=== PATIENT | female | born 1945 | race Caucasian/White ===

== ENCOUNTER 2024-08-19 04:49 | Inpatient (IN) | payer MEDICARE, OTHER, SELFPAY ==
[2024-08-19] VITALS (162 sets, daily range): BP systolic 77–141; BP diastolic 36–84; BMI 24.6; BMI 24.7
[2024-08-19 00:12] LABS: Glucose - Point of Care 45 mg/dl (70-99)
[2024-08-19 00:43] LABS: Glucose - Point of Care 67 mg/dl (70-99)
--- NOTE | 2024-08-19 00:51 | VATNOTE ---
VAT paged to access patient's port. Both medial and lateral accessed, flushed with ease no BR in either lumen. Patient in need of vascular access for hypoglycemia, will address lack of blood return when stable. Patient states her port was just
accessed at [facility] on August 12 and she frequently has issues with blood return. Primary RN aware and at bedside.
[2024-08-19] MEDS: D10W 250 IV (00:52)
[2024-08-19 01:04] LABS: AST (SGOT) 36 U/L (14-36); Albumin 2.1 g/dl (3.5-5.0); Alkaline Phosphatase 276 U/L (38-126); Blood Urea Nitrogen 19 mg/dl (7-17); Calcium 8.2 mg/dl (8.4-10.2); Carbon Dioxide 20 mmol/L (22-30); Chloride 101 mmol/L (98-107); Estimated Creatinine Clearance 29 ml/min; Glucose 126 mg/dl (70-99); Potassium 4.7 mmol/L (3.5-5.1); Sodium 132 mmol/L (135-145); Total Bilirubin 0.4 mg/dl (0.2-1.3); eGFR 38.75
[2024-08-19] MEDS: DEXTROSE 50% SYRINGE 25 GRAMS IV (01:07)
[2024-08-19] MEDS: NSS 500 IV (01:07)
[2024-08-19] MEDS: NSS 1000 IV (01:09)
[2024-08-19 01:11] LABS: COVID-19 Antigen Negative (Negative)
[2024-08-19 01:15] LABS: Lactic Acid 5.8 mmol/L (0.7-2.0)
[2024-08-19 01:18] LABS: ALT (SGPT) < 30 U/L (0-35)
--- NOTE | 2024-08-19 01:20 | ED.GENMED ---
History of Present Illness
<Jeff Ko PA-C - Last Filed: 08/19/24 03:07>
General
Chief Complaint: Fever
Time Seen by Provider: 08/19/24 00:11
History of Present Illness
History of Present Illness:
79-year-old female with history of metastatic endometrial cancer presents to the emergency department for evaluation of fatigue and hypotension. She arrives from her nursing facility, was admitted there on August 17 after a hospitalization at
[facility] from 08 11 through 08 17. She was admitted to [facility] for weakness and hypotension that delayed a planned dose of her chemotherapy. She was noted to be febrile while inpatient and had a urine culture that grew a multidrug-resistant E. coli
with sensitivities to fluoroquinolones and Bactrim. She is currently on day 2 of 5 of Bactrim. On arrival the patient appears lethargic but is oriented fully, she denies any pain. She was reportedly hypoglycemic for EMS and received a small
infusion of D10 as well as 15 g of oral glucose. She was reportedly hypoxic failure nursing facility however not hypoxic for EMS. Of note while at [facility] she was anemic and received a unit of blood on the day of discharge
She underwent a CT scan on August 11 of the chest abdomen pelvis showing a left retroperitoneal mass that was slightly decreased in size compared to prior with involvement of the left adrenal gland, left renal artery, left renal vein, left ureter, and
superior mesenteric vein. There was note of a new air foci within the mass lesion representing either necrosis, bowel communication, or an interval procedure.
Review of Systems
<Jeff Ko PA-C - Last Filed: 08/19/24 03:07>
Review of Systems
Allergies reviewed?: Yes
All Other Systems: ROS reviewed and negative except as documented in HPI and ROS
Phy Exam
<Jeff Ko PA-C - Last Filed: 08/19/24 03:07>
Physical Exam
Physical Exam:
GEN: Pale, ill-appearing
HEENT: Oral mucosa dry, no scleral icterus
Cardiac: Tachycardic, regular
Lung: Tachypnea, lungs globally clear
Abdomen: Soft, nontender
MSK: No gross deformity or injuries
Skin: Good color, no pallor or jaundice, no rashes
Neuro: Fatigued but oriented x 3, moves all extremities freely
Psych: Calm, cooperative
Course
<Jeff Ko PA-C - Last Filed: 08/19/24 03:07>
Orders/Labs/Results
Orders:
Orders
08/19/24 00:11
CR Chest Portable - 1 View Urgent
Comment:
Reason For Exam: fever
Reason Study Needs to be Portable: Other
08/19/24 00:12
Dextrose 10%/Water 500 ml [D10w] 250 ml IV 500 mls/hr
08/19/24 00:14
Electrocardiogram (*1) Urgent
Reason for Study: Tachycardia
EKG- Treatment ONCE
08/19/24 00:25
COVID-19 Antigen Urgent
Source: Nasal Swab
Influenza A+B Rapid Molecular Urgent
GEOFFREY Source: Nasal Swab
Specimen Description:
08/19/24 00:26
Blood Culture Q30M
GEOFFREY Source: Blood/Venous
Specimen Description:
08/19/24 00:37
Complete Blood Count/With Diff Urgent
Comprehensive Metabolic Panel Urgent
Lactic Acid Q4H
Comment: CANCEL 2nd LACTIC ACID IF 1st LACTIC ACID IS LESS THAN 2
Manual Differential Urgent
08/19/24 00:38
Blood Culture Q30M
GEOFFREY Source: Blood/Venous
Specimen Description:
08/19/24 01:06
0.9% Sodium Chloride 500 ml [Nss] 500 ml IV BOLUS
Dextrose 50%-Water [Dextrose 50% Syringe] 25 grams IV NOW STA
08/19/24 01:07
Dextrose 50%-Water [Dextrose 50% Syringe] 25 grams .ROUTE .STK-MED ONE
08/19/24 01:09
0.9% Sodium Chloride 1000 ml [Nss] 1,000 ml IV BOLUS
08/19/24 01:23
0.9% Sodium Chloride 250 ml [Nss] 250 ml IV BOLUS
NORepinephrine 4 MG/250 ML [Levophed] 4 mg in 250 ml .ROUTE .STK-MED
Piperacillin/Tazo 3.375 Gram [Zosyn] 3.375 gram in 50 ml IV NOW
08/19/24 01:30
NORepinephrine 4 MG/250 ML [Levophed] 4 mg in 250 ml IV PER PROTOCOL
Initial dose in mcg/min, then titrate:: 2
Titrate to keep:: MAP > 65 mmHg
Titrate by mcg/min:: 1-2 mcg/min
Frequency of titrations (minutes):: 5
Maximum dose in ICU in mcg/min:: 30
Maximum dose in IMU in mcg/min:: 8
Maximum dose in IVU in mcg/min:: 4
Begin to taper infusion when:: Remained at goal for 4hrs
Taper by mcg/min:: 1-2 mcg/min
Frequency of taper (minutes) if patient maintains goal:: 30
Taper to off?: Yes
If infusion off & no longer maintaining goal:: Contact Provider
08/19/24 01:31
Acetaminophen [Tylenol/Feverall] 650 mg .ROUTE .STK-MED ONE
08/19/24 01:32
LevoFLOXacin 750 MG/150 ML [Levaquin] 750 mg in 150 ml IV NOW
08/19/24 01:35
CT Abd/Pel (IV only)-DH only Urgent
Comment:
Reason For Exam: sepsis; known L retroperitoneal mass
08/19/24 01:52
Type+Screen Urgent
Urinalysis Reflex To Culture Urgent
Date Specimen was Collected: 08/19/24
Time Specimen was Collected: 01:49
Urine Microscopic Reflex Cult Urgent
Urine Culture Urgent
GEOFFREY Source: U
Specimen Description:
Date Specimen was Collected: 08/19/24
Time Specimen was Collected: 01:49
08/19/24 01:58
Hydrocortisone Sod Succinate [Solu-Cortef] 100 mg IV NOW STA
08/19/24 02:00
Acetaminophen [Tylenol/Feverall] 650 mg RECTAL NOW STA
08/19/24 02:21
Vancomycin [Vancocin] 1,500 mg 0.9% Sodium Chloride 500 ml [Nss] 500 ml IV NOW
08/19/24 02:52
ABO2 Urgent
[employer] Wristband Number:
Associate notified that ABO2 has been ordered: [id number]
Date: 08/19/24
Time: 02:00
Photograph Finisher ID: [id number]
08/19/24 03:15
Vasopressin INFUSION 100 mL Continuous Vasopressin 20 Units/100 ml [Pitressin] 20 units in 100 ml IV PER PROTOCOL
Initial dose in units/min, then titrate:: 0.01
Titrate to keep:: MAP > 65 mmHg
Titrate by units/min:: 0.005 units/min
Frequency of titrations (minutes):: 10
Maximum dose in units/min:: 0.1
Begin to taper infusion when:: Remained at goal for 8hrs
Taper by units/min:: 0.005 units/min
Frequency of taper (minutes) if patient maintains goal:: 60
Taper to off?: Yes
If infusion off and no longer mantaining goal:: Contact Provider
08/19/24 04:15
Lactic Acid Q4H
Comment: CANCEL 2nd LACTIC ACID IF 1st LACTIC ACID IS LESS THAN 2
Abnormal Lab Results
08/19/24 08/19/24 08/19/24
00:11 00:37 00:42
WBC 11.9 H 10^3/uL
(4.8-10.8)
RBC 3.27 L 10^6/uL
(4.20-5.40)
Hgb 9.5 L g/dL
(12.0-16.0)
Hct 29.5 L %
(37.0-47.0)
MCHC 32.2 L g/dL
(33.0-37.0)
RDW 16.5 H %
(11.5-14.5)
Abs Neuts (Manual) 11.5 H 10^3/uL
(1.4-6.5)
Band Neutrophils 24 H %
(0-3)
Lymphocytes (Manual) 2 L %
(20-51)
Monocytes (Manual) 1 L %
(2-9)
Sodium 132 L mmol/L
(135-145)
Carbon Dioxide 20 L mmol/L
(22-30)
BUN 19 H mg/dl
(7-17)
Creatinine 1.4 H mg/dL
(0.6-1.0)
Glucose 126 H mg/dl
(70-99)
Lactic Acid 5.8 H* mmol/L
(0.7-2.0)
Calcium 8.2 L mg/dl
(8.4-10.2)
Alkaline Phosphatase 276 H U/L
(38-126)
Total Protein 5.0 L g/dl
(6.3-8.2)
Albumin 2.1 L g/dl
(3.5-5.0)
Ur Occult Blood Reflex
Urine RBC
Urine WBC (Reflex)
Urine Bacteria (Reflex)
Urine Albumin (Reflex)
POC Glucose 45 L* mg/dl 67 L mg/dl
(70-99) (70-99)
08/19/24 08/19/24
01:52 02:46
WBC
RBC
Hgb
Hct
MCHC
RDW
Abs Neuts (Manual)
Band Neutrophils
Lymphocytes (Manual)
Monocytes (Manual)
Sodium
Carbon Dioxide
BUN
Creatinine
Glucose
Lactic Acid
Calcium
Alkaline Phosphatase
Total Protein
Albumin
Ur Occult Blood Reflex 1+ A
(Negative)
Urine RBC 3-6 A /HPF
(0-2)
Urine WBC (Reflex) 11-15 A /HPF
(0-5)
Urine Bacteria (Reflex) Few A
(Negative)
Urine Albumin (Reflex) 1+ A
(Neg - Trace)
POC Glucose 153 H mg/dl
(70-99)
08/19/24 00:37
08/19/24 00:37
Vital Signs
Initial and Last Documented VS:
Initial Vital Signs
BP
97/51
08/19/24 00:08
Last Documented Vital Signs
Temp Pulse Resp BP Pulse Ox
102.1 F H 98 24 86/49 94
08/19/24 01:45 08/19/24 02:45 08/19/24 02:45 08/19/24 02:45 08/19/24 02:45
<Sofiya Drummond, - Last Filed: 08/19/24 02:29>
Orders/Labs/Results
Orders:
Orders
08/19/24 00:11
CR Chest Portable - 1 View Urgent
Comment:
Reason For Exam: fever
Reason Study Needs to be Portable: Other
08/19/24 00:12
Dextrose 10%/Water 500 ml [D10w] 250 ml IV 500 mls/hr
08/19/24 00:14
Electrocardiogram (*1) Urgent
Reason for Study: Tachycardia
EKG- Treatment ONCE
08/19/24 00:25
COVID-19 Antigen Urgent
Source: Nasal Swab
Influenza A+B Rapid Molecular Urgent
GEOFFREY Source: Nasal Swab
Specimen Description:
08/19/24 00:26
Blood Culture Q30M
GEOFFREY Source: Blood/Venous
Specimen Description:
08/19/24 00:37
Complete Blood Count/With Diff Urgent
Comprehensive Metabolic Panel Urgent
Lactic Acid Q4H
Comment: CANCEL 2nd LACTIC ACID IF 1st LACTIC ACID IS LESS THAN 2
Manual Differential Urgent
08/19/24 00:38
Blood Culture Q30M
GEOFFREY Source: Blood/Venous
Specimen Description:
08/19/24 01:06
0.9% Sodium Chloride 500 ml [Nss] 500 ml IV BOLUS
Dextrose 50%-Water [Dextrose 50% Syringe] 25 grams IV NOW STA
08/19/24 01:07
Dextrose 50%-Water [Dextrose 50% Syringe] 25 grams .ROUTE .STK-MED ONE
08/19/24 01:09
0.9% Sodium Chloride 1000 ml [Nss] 1,000 ml IV BOLUS
08/19/24 01:23
0.9% Sodium Chloride 250 ml [Nss] 250 ml IV BOLUS
NORepinephrine 4 MG/250 ML [Levophed] 4 mg in 250 ml .ROUTE .STK-MED
Piperacillin/Tazo 3.375 Gram [Zosyn] 3.375 gram in 50 ml IV NOW
08/19/24 01:30
NORepinephrine 4 MG/250 ML [Levophed] 4 mg in 250 ml IV PER PROTOCOL
Initial dose in mcg/min, then titrate:: 2
Titrate to keep:: MAP > 65 mmHg
Titrate by mcg/min:: 1-2 mcg/min
Frequency of titrations (minutes):: 5
Maximum dose in ICU in mcg/min:: 30
Maximum dose in IMU in mcg/min:: 8
Maximum dose in IVU in mcg/min:: 4
Begin to taper infusion when:: Remained at goal for 4hrs
Taper by mcg/min:: 1-2 mcg/min
Frequency of taper (minutes) if patient maintains goal:: 30
Taper to off?: Yes
If infusion off & no longer maintaining goal:: Contact Provider
08/19/24 01:31
Acetaminophen [Tylenol/Feverall] 650 mg .ROUTE .STK-MED ONE
08/19/24 01:32
LevoFLOXacin 750 MG/150 ML [Levaquin] 750 mg in 150 ml IV NOW
08/19/24 01:35
CT Abd/Pel (IV only)-DH only Urgent
Comment:
Reason For Exam: sepsis; known L retroperitoneal mass
08/19/24 01:52
Type+Screen Urgent
Urinalysis Reflex To Culture Urgent
Date Specimen was Collected: 08/19/24
Time Specimen was Collected: 01:49
Urine Microscopic Reflex Cult Urgent
Urine Culture Urgent
GEOFFREY Source: U
Specimen Description:
Date Specimen was Collected: 08/19/24
Time Specimen was Collected: 01:49
08/19/24 01:58
Hydrocortisone Sod Succinate [Solu-Cortef] 100 mg IV NOW STA
08/19/24 02:00
Acetaminophen [Tylenol/Feverall] 650 mg RECTAL NOW STA
08/19/24 02:21
Vancomycin [Vancocin] 1,500 mg 0.9% Sodium Chloride 500 ml [Nss] 500 ml IV NOW
08/19/24 02:52
ABO2 Urgent
[employer] Wristband Number:
Associate notified that ABO2 has been ordered: [id number]
Date: 08/19/24
Time: 02:00
Photograph Finisher ID: [id number]
08/19/24 03:15
Vasopressin INFUSION 100 mL Continuous Vasopressin 20 Units/100 ml [Pitressin] 20 units in 100 ml IV PER PROTOCOL
Initial dose in units/min, then titrate:: 0.01
Titrate to keep:: MAP > 65 mmHg
Titrate by units/min:: 0.005 units/min
Frequency of titrations (minutes):: 10
Maximum dose in units/min:: 0.1
Begin to taper infusion when:: Remained at goal for 8hrs
Taper by units/min:: 0.005 units/min
Frequency of taper (minutes) if patient maintains goal:: 60
Taper to off?: Yes
If infusion off and no longer mantaining goal:: Contact Provider
08/19/24 04:15
Lactic Acid Q4H
Comment: CANCEL 2nd LACTIC ACID IF 1st LACTIC ACID IS LESS THAN 2
Abnormal Lab Results
08/19/24 08/19/24 08/19/24
00:11 00:37 00:42
WBC 11.9 H 10^3/uL
(4.8-10.8)
RBC 3.27 L 10^6/uL
(4.20-5.40)
Hgb 9.5 L g/dL
(12.0-16.0)
Hct 29.5 L %
(37.0-47.0)
MCHC 32.2 L g/dL
(33.0-37.0)
RDW 16.5 H %
(11.5-14.5)
Abs Neuts (Manual) 11.5 H 10^3/uL
(1.4-6.5)
Band Neutrophils 24 H %
(0-3)
Lymphocytes (Manual) 2 L %
(20-51)
Monocytes (Manual) 1 L %
(2-9)
Sodium 132 L mmol/L
(135-145)
Carbon Dioxide 20 L mmol/L
(22-30)
BUN 19 H mg/dl
(7-17)
Creatinine 1.4 H mg/dL
(0.6-1.0)
Glucose 126 H mg/dl
(70-99)
Lactic Acid 5.8 H* mmol/L
(0.7-2.0)
Calcium 8.2 L mg/dl
(8.4-10.2)
Alkaline Phosphatase 276 H U/L
(38-126)
Total Protein 5.0 L g/dl
(6.3-8.2)
Albumin 2.1 L g/dl
(3.5-5.0)
Ur Occult Blood Reflex
Urine RBC
Urine WBC (Reflex)
Urine Bacteria (Reflex)
Urine Albumin (Reflex)
POC Glucose 45 L* mg/dl 67 L mg/dl
(70-99) (70-99)
08/19/24 08/19/24
01:52 02:46
WBC
RBC
Hgb
Hct
MCHC
RDW
Abs Neuts (Manual)
Band Neutrophils
Lymphocytes (Manual)
Monocytes (Manual)
Sodium
Carbon Dioxide
BUN
Creatinine
Glucose
Lactic Acid
Calcium
Alkaline Phosphatase
Total Protein
Albumin
Ur Occult Blood Reflex 1+ A
(Negative)
Urine RBC 3-6 A /HPF
(0-2)
Urine WBC (Reflex) 11-15 A /HPF
(0-5)
Urine Bacteria (Reflex) Few A
(Negative)
Urine Albumin (Reflex) 1+ A
(Neg - Trace)
POC Glucose 153 H mg/dl
(70-99)
08/19/24 00:37
08/19/24 00:37
Vital Signs
Initial and Last Documented VS:
Initial Vital Signs
BP
97/51
08/19/24 00:08
Last Documented Vital Signs
Temp Pulse Resp BP Pulse Ox
102.1 F H 98 24 86/49 94
08/19/24 01:45 08/19/24 02:45 08/19/24 02:45 08/19/24 02:45 08/19/24 02:45
<Jeff Ko PA-C - Last Filed: 08/19/24 03:07>
MDM/Problems Addressed
MDM/Problems Addressed:
79-year-old female presents in septic shock from uncertain source. She was recently admitted to [facility] for UTI where she was found to have a multidrug-resistant E. coli however was treated appropriately with Bactrim. On arrival she is
hypotensive and febrile, unclear etiology to her sepsis however she has severe lactic acidosis and bandemia. Given 30 cc/kg fluid bolus and promptly started on vasopressors due to intractable hypotension. Gradually uptitrated on norepinephrine and
vasopressin was then added. Broad-spectrum antibiotics given, Levaquin and vancomycin based on prior culture data and to cover MRSA given her recent hospital stay. I discussed with the patient and her daughter and she is to remain a DNR.
<Jeff Ko PA-C - Last Filed: 08/19/24 03:07>
*Critical Care Note
Total Time (30-74mins, 75-104mins- exclusive of procedures): 95-minute
comment:
Critical care time: 95 minutes
Critical care time was exclusive of: Separately billable procedures, treating other patients, and teaching time
Critical care was necessary to treat or prevent imminent or life-threatening deterioration of the following conditions: Septic shock
Critical care time spent personally by me on the following activities:
[x] Review of old charts
[x] Obtaining history from patient or surrogate
[x] Ordering and review of the laboratory studies
[x] Ordering and review of radiographic studies
[x] Ordering and performing treatments and interventions
[x] Patient patient's response to treatment
[x] Development of treatment plan with patient or surrogate
<Jeff Ko PA-C - Last Filed: 08/19/24 03:07>
Update Note
Update Note:
Confirmed verbally with the patient as well as her daughter via telephone that she is a DNR/DNI.
ED Attending Note
<Jeff Ko PA-C - Last Filed: 08/19/24 03:07>
-
Portions of this chart may have been created with voice recognition software.� Occasional wrong word or��sound alike� substitutions may have occurred due to the inherent limitations of voice recognition software.
<Sofiya Drummond DO - Last Filed: 08/19/24 02:29>
ED Attending Note
Patient seen and examined by attending physician: Yes
I performed a history and physical exam of patient and discussed management with resident, I reviewed resident's note and agree with documented findings and plan of care.: Yes
ED Attending Note:
79-year-old woman with history of recurrent endometrial carcinoma, on carboplatin with most recent dose scheduled early August on hold due to persistent fatigue and hypotension, recent hospitalization at [facility] for hypotension, fatigue,
treated with IV fluids, 1 unit of packed cells for hemoglobin of 6.3. Treated for E. coli UTI, discharged to [facility] with additional 4-day course of Bactrim.
She [facility] from [facility] with nursing staff initially noting hypoxia, EMS noted blood sugar of 50 received 15 g of oral glucose and IV D10 started.
No prior history of diabetes nor prior episodes of hypoglycemia.
She is noted to be febrile, hypotensive, tachycardic.
She is awake and alert, oriented x 3. Moderately frail in appearance. No respiratory distress.
With hypoglycemia, hypotension concern for adrenal insufficiency as well as significant concern for sepsis, persistent UTI.
Prior records from [facility] reviewed. CT abdomen pelvis August 11 revealing left retroperitoneal mass encompassing the left renal vein/renal artery and kidney causing hydronephrosis and involving the left adrenal node.
Concern for obstructive pyelonephritis, concern for retroperitoneal abscess.
Labs remarkable for markedly elevated lactic acid 5.8. Acute kidney injury creatinine of 1.4. Previous labs from [facility] noted normal renal function 0.8-1.06.
Patient being treated aggressively with IV fluid resuscitation, IV Levophed initiated. Will initiate broad-spectrum antibiotics.
Concern for recurrent anemia, may require blood transfusion.
Will check CT abdomen pelvis.
Will admit to hospitalist service.
Advanced directives discussed with patient. She is DNR status. Currently receiving palliative care.
Will plan to contact daughter.
Discharge Plan
Departure
Patient Disposition: Admit
Date of Disposition: 08/19/24
Time of Disposition: 02:52
Admit to: ICU
Presentation/result/management discussed w/ accepting MD/DO: Hospitalist
Discharge Problem:
Septic shock, metastatic endometrial carcinoma
Prescriptions:
No Action
acetaminophen 325 mg Tablet
650 mg PO Q6H PRN (Reason: fever)
ondansetron HCl [Zofran] 4 mg Tablet
8 mg PO Q8H PRN (Reason: nausea/vomiting)
prochlorperazine maleate 10 mg Tablet
10 mg PO Q6H PRN (Reason: nausea/vomiting)
sulfamethoxazole-trimethoprim [Bactrim DS] 800-160 mg Tablet
1 tab PO Q12H
Rx Instructions:
for 4 days 08/18-08/22
acetaminophen 500 mg Tablet
1,000 mg PO Q8H
Rx Instructions:
for 10 days starting 08/18
lidocaine-prilocaine 2.5-2.5 % Cream
1 applic TOPICAL DAILY
magnesium hydroxide [Milk of Magnesia] 400 mg/5 mL Suspension
15 ml PO HS PRN (Reason: constipation)
bisacodyl [Dulcolax (bisacodyl)] 10 mg Suppository
10 mg DC DAILY PRN (Reason: constipation)
Fleet Enema 19-7 gram/118 mL Enema
118 ml DC ONCE PRN (Reason: constipation)
gabapentin 300 mg Capsule
300 mg PO BID
ibuprofen 600 mg Tablet
600 mg PO Q6H PRN (Reason: pain)
Rx Instructions:
give with food
Saccharomyces boulardii 250 mg Capsule
250 mg PO BID
zinc oxide 13 % Cream
1 applic TOPICAL Q12H
Referrals:
Larry Toney MD [Family Provider] -
Interventions
Interventions:
*Risk Screen - Suicide Last Done: 08/19/24 00:15
*General Assessment Last Done: 08/19/24 00:15
*Neglect/Abuse Screening Last Done: 08/19/24 00:15
*ED- Fall Risk Assessment Last Done: 08/19/24 00:15
ED- Neurological Assessment Last Done: 08/19/24 00:15
ED-Skin Assessment Last Done: 08/19/24 00:15
Discharge Date and Time
Print Language: BULGARIAN
[2024-08-19] MEDS: LEVOPHED 250 IV ×6 (01:25→18:22)
[2024-08-19] MEDS: NSS 250 IV (01:39)
[2024-08-19 01:44] LABS: Hematocrit 29.5 % (37.0-47.0); Hemoglobin 9.5 g/dL (12.0-16.0); Mean Corp Hgb Conc. 32.2 g/dL (33.0-37.0); Mean Corpuscular Hgb 29.1 pg (27.0-31.0); Mean Corpuscular Volume 90.2 fL (81.0-99.0); Mean Platelet Volume 9.3 fL (7.4-10.4); Platelet Count 337 10^3/uL (130-400); Red Blood Cell Count 3.27 10^6/uL (4.20-5.40); Red Cell Dist. Width 16.5 % (11.5-14.5); White Blood Cell Count 11.9 10^3/uL (4.8-10.8)
[2024-08-19] MEDS: LEVAQUIN 150 IV (01:45)
[2024-08-19 01:51] LABS: Glucose - Point of Care 95 mg/dl (70-99)
[2024-08-19 02:17] LABS: Urine Albumin 1+ (Neg - Trace); Urine Bilirubin Negative (Negative); Urine Character Clear (Clear); Urine Color Yellow; Urine Glucose Negative (Negative); Urine Ketone Negative (Negative); Urine Leukocyte Negative (Negative); Urine Nitrite Negative (Negative); Urine Occult Blood 1+ (Negative); Urine Urobilinogen Negative (Neg - 1+)
[2024-08-19] MEDS: SOLU-CORTEF 100 MG IV (02:20)
[2024-08-19 02:22] LABS: Anisocytosis 1+; Normal RBC Morphology No; Nucleated Red Blood Cells 1 (-); Platelets Checked Yes; Segmented Neutrophils 73 % (42-75)
[2024-08-19 02:23] LABS: Total Cells Counted 100; Toxic Granulation 1+
[2024-08-19 02:25] LABS: Absolute Neutrophils -Man Diff 11.5 10^3/uL (1.4-6.5); Band Neutrophils 24 % (0-3); Lymphocytes 2 % (20-51); Monocytes 1 % (2-9); Vacuolated Segs Slight
[2024-08-19 02:47] LABS: Urine Bacteria Few (Negative)
[2024-08-19 02:48] LABS: Glucose - Point of Care 153 mg/dl (70-99)
[2024-08-19] MEDS: TYLENOL/FEVERALL 650 MG RECTAL (02:48)
[2024-08-19] MEDS: PITRESSIN 100 IV (03:08)
[2024-08-19] MEDS: VANCOCIN 530 MG IV (03:35)
--- NOTE | 2024-08-19 03:56 | HPS.HSE ---
Family Physician
-
Family Physician: Larry Toney
Chief Complaint
-
Fever
History of Present Illness
This is a 79-year-old female with past medical history of metastatic endometrial cancer on chemotherapy currently who presents to the emergency department for evaluation of hypotension and fatigue.
Patient was recently admitted to [facility] for weakness and hypotension that delayed planned chemotherapy. She was admitted from the fall through the . She had urine culture that grew multidrug-resistant E. coli with sensitivities to
fluoroquinolone Bactrim. Patient was started on Bactrim and she is currently on day 2 of 5 for Bactrim.
Patient was discharged back to her nursing facility and the she was lethargic but oriented and in no acute distress. She denied any pain. She was hypoxic hypoglycemic for EMS and received a D10. She was not hypoxic.
She also was unable to provide much history. She denies any diarrhea. She denies any urinary symptoms.
She had a CT scan on 11 August of the chest abdomen pelvis showing a left retroperitoneal mass that was slightly decreased in size compared to prior with involvement of the left adrenal gland left renal artery, left renal vein left ureter and superior
mesenteric vein. They did note the new foci within the mass lesion representing either necrosis bowel communication or interval procedure. She has not had any recent urological procedure but unclear if she received urinary catheter.
In the emergency department here she was hypotensive requiring pressors, oxygen saturation was 97 temperature was 102.1 and she was tachycardic to 110. She has white count of 11.9 with 24% bands hemoglobin and platelet counts were acceptable at 9.5
and 337. Electrolytes were stable. Creatinine was 1.4 similar to baseline with a blood glucose of 126.
UA with WBCs and few bacteria but negative leukocyte esterase and negative nitrites.
Medical History
Past Medical History
Past Medical History: Reports Cancer (endometrial cancer)
Past Surgical History: Reports Other
Social History
Tobacco: Non-smoker
Alcohol: None
Family History
Family History: Not pertinent
Allergies / Home Medications
Allergies reflects when Allergies were last updated in [employer].
Home Medications with original date entered in [employer]
Allergy/Medication List:
Allergies
Allergy/AdvReac Type Severity Reaction Status Date / Time
No Known Allergies Allergy Verified 08/19/24 00:14
Home Medications
Saccharomyces boulardii 250 mg capsule 250 mg PO BID 08/19/24
acetaminophen 325 mg tablet 650 mg PO Q6H PRN fever 08/19/24
acetaminophen 500 mg tablet 1,000 mg PO Q8H 08/19/24
bisacodyl 10 mg rectal suppository (Dulcolax (bisacodyl)) 10 mg GA DAILY PRN constipation 08/19/24
gabapentin 300 mg capsule 300 mg PO BID 08/19/24
ibuprofen 600 mg tablet 600 mg PO Q6H PRN pain 08/19/24
lidocaine-prilocaine 2.5 %-2.5 % topical cream 1 applic topical DAILY 08/19/24
magnesium hydroxide 400 mg/5 mL oral suspension (Milk of Magnesia) 15 ml PO HS PRN constipation 08/19/24
ondansetron HCl 4 mg tablet 8 mg PO Q8H PRN nausea/vomiting 08/19/24
prochlorperazine maleate 10 mg tablet 10 mg PO Q6H PRN nausea/vomiting 08/19/24
sodium phosphates 19 gram-7 gram/118 mL enema (Fleet Enema) 118 ml GA ONCE PRN constipation 08/19/24
sulfamethoxazole 800 mg-trimethoprim 160 mg tablet (Bactrim DS) 1 tab PO Q12H 08/19/24
zinc oxide 13 % topical cream 1 applic topical Q12H 08/19/24
Review of Systems
-
History Source: Patient
Constitutional: Reports Fever
EENT: Reports No Symptoms
Respiratory: Reports No Symptoms
Cardiac: Reports No Symptoms
Abdomen/GI: Reports No Symptoms
: Reports No Symptoms
Musculoskeletal: Reports No Symptoms
Skin: Reports No Symptoms
Neurological: Reports No Symptoms
Endocrine: Reports No Symptoms
Hematologic/Lymphatic: Reports No Symptoms
Psych: Reports No Symptoms
Physical Exam
Vital Signs
Vital Signs
Temp Pulse Resp BP Pulse Ox
102.1 F H 104 15 94/54 97
08/19/24 01:45 08/19/24 03:45 08/19/24 03:45 08/19/24 03:45 08/19/24 03:15
Physical Exam
General: Appears Chronically Ill
HEENT: NormoCephalic, Anicteric, Moist mucous membranes and Atraumatic
Respiratory: Clear
Cardiac: S1/S2 and Regular Rhythm
Breast: Deferred by me
GI: Soft, Non Tender, Non Distended and Normal Bowel Sounds
Rectal: Deferred by Provider
Genito-urinary: Deferred by me
Musculoskeletal: No Clubbing, No Cyanosis and No Edema
Skin: Warm
Neuro: AO x 3 and Nonfocal/grossly intact
Hematologic/Lymphatic: No Lymphadenopathy
Psych: Calm
Laboratory Results
-
08/19/24 00:37
08/19/24 00:37
Laboratory Results
Lactic Acid 5.8 mmol/L (0.7-2.0) H* 08/19/24 00:37
Total Bilirubin 0.4 mg/dl (0.2-1.3) 08/19/24 00:37
AST 36 U/L (14-36) 08/19/24 00:37
ALT < 30 U/L (0-35) 08/19/24 00:37
Alkaline Phosphatase 276 U/L (38-126) H 08/19/24 00:37
Data Reviewed
-
CT Scan: Report Reviewed by me
Medical Tests (Nuc Med, Echo, EKG etc): Image Personally Visualized and interpreted
Lab Data: Labs Reviewed by me
Impression/Plan
-
IMPRESSION:
Patient is a 79 y.o with history of endometrial cancer on chemotherapy presenting to ED with septic shock. She is febrile, hypotensive and now on pressors. Recently treated for MDR E.coli with bactrim (day 2 of 5) and comes in septic. The labs
notable for bandemia, mild SHEY and lactic acidosis. U/A is equivocal with few bacteria and wbc but w/o LE. The CT scan is highly concerning for emphysematous pyelitis and possibly emphysematous pyelonephritis with an infected phlegmon throughout
the left renal collecting system with associated internal pockets of gas and marginal enhancement suggestive of multilocular abscess or infected tumor.
PLAN:
Sepsis - Septic shock on pressors secondary to either complicated UTI with pyelitis/pyelonephritis further complicated by pelvic abscess from left kidney pyelonephritis/abscess with possible infected tumor as well.
- admit to ICU
- blood cultures have been sent
- Broad spectrum abx with Vanc/Zosyn/Levaquin given, will continue Vanc/Zosyn for now
- contacted urology and IRAD for possible phlegmon drainage, NPO in am, IRAD to attempt drain
- pressor support on 2 pressors for now
- continue with D5 LR at 100 ml/hr
- given hydrocortisone for septic shock in ED
- ID consultation
- Compensation Agent consult
DVT PPX - heparin sq
Code status -DNR. Poor prognosis. Consider hospice consult. Patient was introduced to possibility of comfort measures but was not immediately amenable and would undergo procedures now for treatment. She is considering talking to family and
changing plans
--- NOTE | 2024-08-19 03:59 | EDRN ---
Dr. Fregoso at bedside talking with patient about CT scan results and working on admitting her, patient is answering his questions and following commands
--- NOTE | 2024-08-19 04:57 | EDRN ---
Patient starting to drop her oxygen level, patient placed on 4L nc to maintain her oxygen level.
[2024-08-19 05:00] LABS: Lactic Acid 4.3 mmol/L (0.7-2.0)
[2024-08-19] MEDS: ALBUMIN 5% 250 IV ×2 (05:06→06:25)
--- NOTE | 2024-08-19 05:10 | EDRN ---
Dr. Eubanks at beside seeing patient
--- NOTE | 2024-08-19 05:13 | CONS.URO ---
Consultation
-
Date/Time Consultation Performed: 08/19/24 1725
Requesting Provider: ED
Performing Provider: Raimundo
Reason for Consultation: left emphesematous pyelopnephritis
Medical History
History of Present Illness
ED admission note: '79-year-old female with history of metastatic endometrial cancer presents to the emergency department for evaluation of fatigue and hypotension. She arrives from her nursing facility, was admitted there on August 17 after a
hospitalization at [facility] from 08 11 through 08 17. She was admitted to [facility] for weakness and hypotension that delayed a planned dose of her chemotherapy. She was noted to be febrile while inpatient and had a urine culture that grew a
multidrug-resistant E. coli with sensitivities to fluoroquinolones and Bactrim. She is currently on day 2 of 5 of Bactrim. On arrival the patient appears lethargic but is oriented fully, she denies any pain. She was reportedly hypoglycemic for
EMS and received a small infusion of D10 as well as 15 g of oral glucose. She was reportedly hypoxic failure nursing facility however not hypoxic for EMS. Of note while at [facility] she was anemic and received a unit of blood on the day of discharge
She underwent a CT scan on August 11 of the chest abdomen pelvis showing a left retroperitoneal mass that was slightly decreased in size compared to prior with involvement of the left adrenal gland, left renal artery, left renal vein, left ureter, and
superior mesenteric vein. There was note of a new air foci within the mass lesion representing either necrosis, bowel communication, or an interval procedure.
Past Medical History
Past Medical History: Cancer (metastatic, endometrial) and Other (left pyelonephritis)
Social History
Unable to obtain full social history at this time due to: Other (pt can be aroused only briefly with limited communication)
Allergies/Home Medications
Allergies
Allergy/AdvReac Type Severity Reaction Status Date / Time
No Known Allergies Allergy Verified 08/19/24 00:14
Home Medications
�Medication �Instructions �Recorded �Confirmed �Type
Saccharomyces boulardii 250 mg 250 mg PO BID 08/19/24 08/19/24 History
capsule
acetaminophen 325 mg tablet 650 mg PO Q6H PRN fever 08/19/24 08/19/24 History
acetaminophen 500 mg tablet 1,000 mg PO Q8H 08/19/24 08/19/24 History
bisacodyl 10 mg rectal suppository 10 mg MS DAILY PRN constipation 08/19/24 08/19/24 History
(Dulcolax (bisacodyl))
gabapentin 300 mg capsule 300 mg PO BID 08/19/24 08/19/24 History
ibuprofen 600 mg tablet 600 mg PO Q6H PRN pain 08/19/24 08/19/24 History
lidocaine-prilocaine 2.5 %-2.5 % 1 applic topical DAILY 08/19/24 08/19/24 History
topical cream
magnesium hydroxide 400 mg/5 mL 15 ml PO HS PRN constipation 08/19/24 08/19/24 History
oral suspension (Milk of Magnesia)
ondansetron HCl 4 mg tablet 8 mg PO Q8H PRN nausea/vomiting 08/19/24 08/19/24 History
prochlorperazine maleate 10 mg 10 mg PO Q6H PRN nausea/vomiting 08/19/24 08/19/24 History
tablet
sodium phosphates 19 gram-7 118 ml MS ONCE PRN constipation 08/19/24 08/19/24 History
gram/118 mL enema (Fleet Enema)
sulfamethoxazole 800 1 tab PO Q12H 08/19/24 08/19/24 History
mg-trimethoprim 160 mg tablet
(Bactrim DS)
zinc oxide 13 % topical cream 1 applic topical Q12H 08/19/24 08/19/24 History
Physical Exam
Vital Signs
Vital Signs
Temp Pulse Resp BP Pulse Ox
99.8 F 93 10 103/51 93
08/19/24 04:32 08/19/24 04:30 08/19/24 04:30 08/19/24 04:25 08/19/24 04:30
Lab / Testing Results
Laboratory Results
08/19/24 00:37
08/19/24 00:37
Physical Exam
ill-appearing adult female on ED gurney; labored wide-open mouth breathing
Assessment / Plan
-
Dire condition: left kidney system appears to have broken down with necrosis and abscess spreading into retroperitoneal space, involving contiguous GI tract
IRad has been consulted to determine if a percutaneous drain could be placed in the perinephric abscess.
Her prognosis is grim -- hospice should be considered.
Data Reviewed
-
CT Scan: Image personally visualized and interpreted
Lab Data: Labs Reviewed
Old Records: Reviewed
[2024-08-19 06:38] LABS: Glucose - Point of Care 124 mg/dl (70-99)
[2024-08-19 07:17] LABS: Lactic Acid 3.7 mmol/L (0.7-2.0)
--- NOTE | 2024-08-19 07:37 | CON.INTV ---
Consultation
Consultation Request
Date/Time Consultation Requested: 08/19/24
Date/Time Consultation Performed: 08/19/24
Performing Provider: Cassie
Reason for Consultation: ICU
Medical History
-
History of Present Illness:
Patient is a 79-year-old female with previous history of metastatic endometrial cancer on chemotherapy presenting to ER with evaluation of hypotension and fatigue. Patient was recently admitted to [facility] for weakness and hypotension that delayed
planned chemotherapy (discharged on 08/17). She had urine culture that grew multidrug-resistant E. coli and treated with Bactrim, currently on day 2 of 5. Patient was discharged back to her nursing facility and the she was lethargic but oriented and
in no acute distress. Developed hypotension, EMS notified, on arrival she was reportedly hypoglycemic, received a D10.
In ER, she remains hypotensive, placed on pressors. Tmax 102.1F, UA with few bacteria but overall negative for UTI, CT AP showing large left retroperitoneal collection of fluid and air contiguous with the left kidney, left ureter, and duodenum,
likely representing a large retroperitoneal abscess and/or emphysematous pyelonephritis. She is admitted to ICU for septic shock.
Past Medical History
Past Medical History: Other (see list below)
Social History
Tobacco: Non-smoker
Alcohol: None
Drug: None
Family History
Family History: Reviewed & Not Pertinent
Allergies / Home Medications
Allergies
Allergy/AdvReac Type Severity Reaction Status Date / Time
No Known Allergies Allergy Verified 08/19/24 00:14
Home Medications
�Medication �Instructions �Recorded �Confirmed �Last Taken �Type
Saccharomyces boulardii 250 mg 250 mg PO BID 08/19/24 08/19/24 Unknown History
capsule
acetaminophen 325 mg tablet 650 mg PO Q6H PRN fever 08/19/24 08/19/24 Unknown History
acetaminophen 500 mg tablet 1,000 mg PO Q8H 08/19/24 08/19/24 Unknown History
bisacodyl 10 mg rectal suppository 10 mg SC DAILY PRN constipation 08/19/24 08/19/24 Unknown History
(Dulcolax (bisacodyl))
gabapentin 300 mg capsule 300 mg PO BID 08/19/24 08/19/24 Unknown History
ibuprofen 600 mg tablet 600 mg PO Q6H PRN pain 08/19/24 08/19/24 Unknown History
lidocaine-prilocaine 2.5 %-2.5 % 1 applic topical DAILY 08/19/24 08/19/24 Unknown History
topical cream
magnesium hydroxide 400 mg/5 mL 15 ml PO HS PRN constipation 08/19/24 08/19/24 Unknown History
oral suspension (Milk of Magnesia)
ondansetron HCl 4 mg tablet 8 mg PO Q8H PRN nausea/vomiting 08/19/24 08/19/24 Unknown History
prochlorperazine maleate 10 mg 10 mg PO Q6H PRN nausea/vomiting 08/19/24 08/19/24 Unknown History
tablet
sodium phosphates 19 gram-7 118 ml SC ONCE PRN constipation 08/19/24 08/19/24 Unknown History
gram/118 mL enema (Fleet Enema)
sulfamethoxazole 800 1 tab PO Q12H 08/19/24 08/19/24 Unknown History
mg-trimethoprim 160 mg tablet
(Bactrim DS)
zinc oxide 13 % topical cream 1 applic topical Q12H 08/19/24 08/19/24 Unknown History
Review of Systems
-
History Source: Patient
All other systems: Negative unless noted
Vitals / Labs / Diagnostic Testing
Vital Signs
Temp Pulse Resp BP Pulse Ox
99.8 F 91 12 125/50 100
08/19/24 04:32 08/19/24 07:20 08/19/24 07:20 08/19/24 07:20 08/19/24 07:23
Lab Data
08/19/24 00:37
08/19/24 00:37
Microbiology
08/19/24 00:25 Nasal Swab Influenza Types A & B (IKER) - Final
Negative for Influenza A & B, NAAT
Negative results must be combined with clinical observations
and patient history.
Nucleic Acid Amplification test (NAAT)performed on the
[employer] platform.
Diagnostic Testing:
Physical Exam
-
HEENT: Normocephalic, Anicteric and Moist Mucous Membranes
Cardiovascular: S1/S2 and Regular Rhythm
Respiratory: Clear and Non-Labored Respirations
GI: Soft, Non Distended and Non Tender
Neurology: Awake, Alert, Oriented and No Motor Deficits
Skin: Warm, Dry and Good Color
General: Comfortable and Other (NAD)
Assessment
-
Patient is a 79-year-old female with previous history of metastatic endometrial cancer on chemotherapy presenting to ER with evaluation of hypotension and fatigue. Patient was recently admitted to [facility] for weakness and hypotension that delayed
planned chemotherapy (discharged on 08/17). She had urine culture that grew multidrug-resistant E. coli and treated with Bactrim, currently on day 2 of 5. Patient was discharged back to her nursing facility and the she was lethargic but oriented and
in no acute distress. Developed hypotension, EMS notified, on arrival she was reportedly hypoglycemic, received a D10. In ER, she remains hypotensive, placed on pressors. Tmax 102.1F, UA with few bacteria but overall negative for UTI, CT AP
showing large left retroperitoneal collection of fluid and air contiguous with the left kidney, left ureter, and duodenum, likely representing a large retroperitoneal abscess and/or emphysematous pyelonephritis. She is admitted to ICU for septic
shock.
Septic shock on pressors
Urosepsis with retroperitoneal abdominal abscess on CT
Complicated UTI, recent history of multidrug-resistant E. coli with recent hospitalization at [facility]
Leukocytosis with bandemia
Lactic acidosis
Hyponatremia
SHEY, creatinine 1.4 (unknown baseline)
Metabolic acidosis
Conditions present prior to admission
Endometrial cancer
Plan
No current signs of metabolic encephalopathy or MS changes/following commands
Denies pain at this time.
Pain/sedation: PRN
RASS goals: 0
Hemodynamically unstable, requiring pressors.
Requiring pressors: levo@22, add on vasopressin
Cardiac history reviewed--none
No prior ECHO for review
Monitor on telemetry
Oxygen needs: stable on NC
Prior history of lung disease: none
Supplemental O2 as indicated to maintain sats > 89%
Aspiration precautions, HOB > 30 degrees
CXR/CT reviewed indicating small R sided eff vs atelectasis, not likely acute
Repeat imaging PRN
CT AP showing extensive necrotic infection/abscess of L sided related to MDRO E.coli
IR consult for perc drain-family was still deciding as this is likely futile
NPO, resume diet when able
SHEY present, no history of chronic renal disease
L sided diseased ureter/kidney, Urology input was that nothing can be offered surgically
She has declined major intra-abd surgery
Void trials
Follow urine output, critical I/Os
Replete electrolytes as needed
Fever and increased WBC on presentation, suspect underlying urosepsis, necrotic abdomen
Started on empiric antibiotics
ID following, appreciate recs
Cultures sent/pending
Follow fever trend, WBC count
Lactate elevated on admission, continue to trend until <2
CBC stable, no signs of bleeding or coagulopathy.
DVT prophylaxis as assessed based on risk, including mechanical SCDs
Can transfuse if indicated for Hb <7, plt < 10
INR WNL
No prior h/o diabetes or thyroid disease
Monitor accuchecks PRN/SS coverage if needed
Prognosis overall poor, she is DNR
Family Discussions
We had a prolonged discussion regarding her prognosis and recent development with CT abdomen pelvis findings. This does not to have a surgical intervention that would change her mortality, nor is it offered. We have discussed the role of inserting
a percutaneous tube, the patient was unsure how she would like to proceed. I had numerous conversations with her daughter and her son, and we discussed this at length. The patient has finally agreed to continue, IR was notified. We also discussed
the role of hospice, patient was agreeable to consult. We will place order and follow-up goals of care conversations.
Diagnostic Data
Chest X-Ray: 08/19/24- Left basilar opacification which could represent subsegmental atelectasis and/for pneumonia.
CT Scan: AP 08/19/24- 1. Large left retroperitoneal collection of fluid and air, which is contiguous with the left kidney, left ureter, and duodenum, as detailed above. Findings likely represent large retroperitoneal abscess and/or emphysematous
pyelonephritis. Associated malignancy and/or necrotic tumor may also be present.
2. Fistulization to the fourth portion of the duodenum may also be present.
3. Multiple hepatic lesions as detailed above, most likely representing hepatic metastatic lesions, however given large retroperitoneal abscess, these may also represent hepatic abscesses.
4. The left kidney has minimal cortical function. There is minimal enhancement and no significant excretion of contrast.
5. Left adrenal mass.
6. Small bilateral pleural effusions. Mild bibasilar subsegmental atelectasis.
Echo:
PFT's:
Reports and relevant images were personally reviewed.
Critical Care time 76 mins -- The patient is admitted for acute critical illness for the treatment of vital organ failure and/or prevention of further life-threatening conditions. Total care includes time spent in review of history, physical exam,
medications, hemodynamic/ventilator parameters, laboratory data, imaging and discussion with house staff, pharmacy, respiratory therapy, solid plasterer, and nursing. Discussed plan of care with care team at length.
--- NOTE | 2024-08-19 07:37 | PTCARENOTE ---
Received patient from ED RN. Pt Aox3, CORRALES, drowsy but easily arousable. Pt on Vasopressin and levo. Vaso turned off upon arrival per [facility] SPECIAL FORCES SPECIALIST, BP stable at this time. 2/2 bags on Albumin infusing. BC sent.
--- NOTE | 2024-08-19 08:00 | W.PN.HOSP.TC ---
Today's Communication/Plan
-
Follow cultures
Continue antibiotics
Continue IV fluids
Continue pressors and wean as able
Continue steroids and wean as able
Await input from consultants
Would give patient 24 to 48 hours to see if she responds to the treatment as directed
Assessment / Plan
Assessment / Plan
pt is a 79 year old female
Daughter at bedside
Septic shock on pressors --patient presented from [facility] where she was there 1 night after hospital stay at [facility]--possible complicated UTI with pyelitis/pyelonephritis/pelvic abscess from left kidney with possible
infected tumor (pt also with recent h/o of multidrug resistant E. 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
abscess--received vanco/zosyn/levaquin in ED, will continue --max's on levophed, wean as able--cont IVF, stress dose steroids
Metastatic endometrial cancer--diagnosed 10 years ago and had chemotherapy/radiation therapy, did well until 5 years ago when a 'spot' was noted in her mid abdomen at which time she received radiation therapy/letrozole, approximately March 2024
'spot' was growing and patient restarted chemotherapy in June 2024 and had 2 rounds. Third round of chemo was postponed due to multidrug-resistant infection and hospitalization at [facility]--- patient met with palliative care while at [facility]
but has not signed up to participate--and is not on hospice--consult oncology
DVT Proph - heparin sq
Code status -DNR. Poor prognosis. Consider hospice consult. Patient was introduced to possibility of comfort measures but was not immediately amenable and would undergo procedures now for treatment--explained to daughter would give patient 24 to
48 hours to see if she responds to antibiotics, fluids, pressors. Would get opinions from specialists at this time as well
Total Critical Care Time 31 minutes. I was immediately available to the patient and staff. I personally examined, reviewed labs, diagnostic images/reports, interpretations, treatment plans, discussed patient care with other providers and family
or caregivers (if patient is unable to make decisions), entered orders as appropriate and documented the medical record.
Anticipated Discharge: > 48 hours
Subjective/Interval History
-
Date of Service: August 19, 2024
pt responds to sternal rub then verbal stimuli but does not carry conversation
Objective Data
-
Labs:
Laboratory Results
08/19/24
00:37
WBC 11.9 H
Hgb 9.5 L
Hct 29.5 L
Plt Count 337
Sodium 132 L
Potassium 4.7
Chloride 101
Carbon Dioxide 20 L
BUN 19 H
Creatinine 1.4 H
Glucose 126 H
Calcium 8.2 L
Total Bilirubin 0.4
AST 36
ALT < 30
Alkaline Phosphatase 276 H
Vital Signs:
max temp for 24 hours
08/19/24
01:45
Temp 102.1 F H
Vital Signs
Temp Pulse Resp BP Pulse Ox
99.8 F 91 12 125/50 100
08/19/24 04:32 08/19/24 07:20 08/19/24 07:20 08/19/24 07:20 08/19/24 07:23
Review of Systems
-
Unable to obtain full review of systems at this time due to: Acuity
Physical Exam
-
General: No Apparent Distress and Appears Chronically Ill
HEENT: Normocephalic, Atraumatic and Oxygen
Respiratory: Decreased Breath Sounds
Cardiac: Regular Rhythm, S1/S2, Gallop and Tachycardic
GI: Soft, Nontender, Nondistended and Normal Bowel Sounds
Musculoskeletal: No Clubbing, No Cyanosis, No Edema and Other (port right chest wall)
Neuro: Other (minimally arousable); Negative Awake or Alert
--- NOTE | 2024-08-19 08:28 | CON.ID ---
Consultation
-
Date/Time Consultation Requested: 08/19/24 6:02
Date/Time Consultation Performed: 08/19/24 8:40
Requesting Provider: Dr Cramer
Performing Provider: Dr Mark
Reason for Consultation: septic shock
Chief Complaint / Past History
Chief Complaint
fever
History of Present Illness
Ms Ward is a 79-year-old female with past medical history of metastatic endometrial cancer on chemotherapy currently here for hypotension and fatigue.
Note recent prolonged admit [facility] for weakness and hypotension that delayed planned chemotherapy. She had urine culture that grew MDR E. coli with sensitivities to fluoroquinolone Bactrim. On day 2 of 5 of Bactrim. Discharged to SNF
but became lethargic but oriented and in no acute distress. No diarrhea or urinary symptoms. She denied any pain. She was hypoglycemic for EMS and received a D10.
She had a CT scan on 11 August of the chest abdomen pelvis showing a left retroperitoneal mass that was slightly decreased in size compared to prior with involvement of the left adrenal gland left renal artery, left renal vein left ureter and superior
mesenteric vein; new foci within the mass lesion: either necrosis, bowel communication, or interval procedure. She has not had any recent urological procedure but unclear if she received urinary catheter.
In the emergency department here she was hypotensive requiring two pressors, oxygen saturation was 97, temperature was 102.1 and she was tachycardic to 110. She has white count of 11.9 with 24% bands hemoglobin 9.5 and platelet counts 337.
Creatinine was 1.4 similar to baseline with a blood glucose of 126. Lactic acid initially 5.8 and now 3.7, LFTs WNL. UA with mild pyuria WBCs and few bacteria. covid ag negative, CT a/p with IV contrast: likely large retroperitoneal
abscess/emphysematous pyelo possibly with assc malignancy, possible fisutlization to duodenum, also possible hepatic abscesses, blood cultures x3 no growth to date, urine culture pending, influenza negative, patient is currently on vancomycin, zosyn
and levofloxacin.
Past History
Additional Past Medical History:
endometrial cancer
Additional Past Surgical History:
see hpi
Allergy History:
No Known Allergies Allergy (Verified 08/19/24 00:14)
Medications Reviewed: Yes
Social History
Tobacco: Non-Smoker
Alcohol: None
Family History
Family History: Not Pertinent
Review of Systems
Review of Systems
General: Fever and Chills
All systems: All other systems were reviewed and were negative
Vital Signs
Temp Pulse Resp BP Pulse Ox
98.0 F 91 12 125/50 100
08/19/24 08:21 08/19/24 07:20 08/19/24 07:20 08/19/24 07:20 08/19/24 07:23
Physical Exam
Physical Exam
Constitutional: Acutely Ill, Chronically Ill and Toxic
Cardiovascular: Regular Rate and S1/S2; Negative Murmur or Rub
Pulmonary: Clear and Symmetric; Negative Wheezes, Rales or Rhonchi
Gastrointestinal: Soft, Tender, Distended (mildly) and Normal Bowel Sounds
Skin: Warm and Dry; Negative Rash or Jaundice
Neurological: Awake
Lab / Diagnostic Study Results
08/19/24 00:37
08/19/24 00:37
Total Counted 100 08/19/24 00:37
Abs Neuts (Manual) 11.5 10^3/uL (1.4-6.5) H 08/19/24 00:37
Segmented Neutrophils 73 % (42-75) 08/19/24 00:37
Band Neutrophils 24 % (0-3) H 08/19/24 00:37
Lymphocytes (Manual) 2 % (20-51) L 08/19/24 00:37
Lactic Acid 3.7 mmol/L (0.7-2.0) H 08/19/24 06:52
Ur Squamous Epith Cells 6-10 /LPF (Few) 08/19/24 01:52
Microbiology Results
Micro:
08/19/24 06:52 Blood Culture - Pending
Blood/Venous
08/19/24 01:52 Urine Culture - Pending
Urine
08/19/24 00:25 Influenza Types A & B (IKER) - Final
Nasal Swab Negative for Influenza A & B, NAAT
Negative results must be combined with clinical observations
and patient history.
Nucleic Acid Amplification test (NAAT)performed on the
[employer] ID NOW platform.
08/19/24 00:26 Blood Culture - Pending
Blood/Venous
08/19/24 00:38 Blood Culture - Pending
Blood/Venous
Assessment / Plan
Large Retroperitoneal Mass/abscess with necrosis
Emphysematous Pyelonephritis
Septic Shock - persists
CKD
metastatic endometrial cancer
- blood cultures x3 in progress
- urine culture in progress
- continue levaquin, vancomycin, zosyn
Patient is actively dying in my opinion and antibiotic therapy alone is futile. Aggressive surgery would be required to control this necrotizing infection - I agree that she isnt a candidate. Neither will she be a candidate for chemotherapy unless
infection fully removed with surgery and she is recovered. Recommend hospice - discussed with patient and adult son and daughter
Consultation required review of multiple labs, coordination of care with interdisciplinary services.
--- NOTE | 2024-08-19 09:06 | CON.ONC ---
Impression
Impression
Metastatic endometrial cancer
Infection necrotic r/p mass, now with image-guided drain in place
Hx colon cancer
Sepsis
Plan
Plan
Pt currently looks okay and pressors are being weaned.
Hopefully she will continue to improve now that abscess is being drained.
Discussed with family that she could easily take a turn for the worse again.
Concern remains regarding overall prognosis given extent of disease.
Consider [facility] consult here at [facility].
Ideally, she could be stabilized and return to Dr. Peralta to discuss goals of care.
For now, she appears to have perked up and would continue ICU level of care.
Thank you for consult, will follow along with you.
Patient History
History of Present Illness
79 yo woman with history of endometrial cancer and synchronous colon cancer diagnosed on 2018 when she presented with dysfunctional uterine bleeding. The endometrial cancer was staged as IVB (cT3a cN1 cM1) due to metastases for nonregional lymph
nodes. The colon cancer was T4b with multiple negative nodes. Pt of Dr. Peralta at [facility]. She was treated with 6 cycles of carboplatin and Taxol followed by pelvic radiation. In 2018 a scan showed an enlarged left retroperitoneal lymph node with
biopsy confirming recurrent endometrial cancer. This was radiated as well. At some point she was treated with fulvestrant but was found early this year to have recurrent disease. She started single agent carboplatin and has had 2 doses so far.
When she presented for her third dose of carboplatin, she was found to be hypotensive and was hospitalized from August 11 to with urosepsis. The urine grew multidrug-resistant E. coli with sensitivity to larry quinolone and Bactrim. Imaging showed
a L r/p mass with extension to L adrenal gland, L renal artery, L renal vein, L ureter and SMV. Foci of air were noted in the r/p mass. She was discharged from [facility] on 08/17 but soon afterward became lethargic and hypoglycemia. She was taken to
ED where found to be hypotensive and febrile to 102.1. In the ER, she was started on Vanco, Zosyn, Levaquin and pressors. She has now undergone placement of a drainage catheter into the retroperitoneal abscess. 60 cc of pus was removed and sent
for culture and sensitivity. Pt seen by ARLEEN Olivares this morning and by myself this afternoon. She is currently awake, alert and interactive.
Past-Medical/Surgical History
PMHx:
Colon cancer, endometrial cancer, chemo neuropathy, B12 deficiency, history of iron deficiency anemia
PSHx:
Right femur fracture
Left femur fracture
ARIANNA/BSO
Hemicolectomy
Social:
Non-smoker, rare alcohol, . Multiple family members in room today.
Family:
Sister and father had colon cancer
(Pt germline mutation testing negative)
Patient Medication
�Medication �Instructions �Recorded �Confirmed �Last Taken �Type
Saccharomyces boulardii 250 mg 250 mg PO BID 08/19/24 08/19/24 Unknown History
capsule
acetaminophen 325 mg tablet 650 mg PO Q6H PRN fever 08/19/24 08/19/24 Unknown History
acetaminophen 500 mg tablet 1,000 mg PO Q8H 08/19/24 08/19/24 Unknown History
bisacodyl 10 mg rectal suppository 10 mg AL DAILY PRN constipation 08/19/24 08/19/24 Unknown History
(Dulcolax (bisacodyl))
gabapentin 300 mg capsule 300 mg PO BID 08/19/24 08/19/24 Unknown History
ibuprofen 600 mg tablet 600 mg PO Q6H PRN pain 08/19/24 08/19/24 Unknown History
lidocaine-prilocaine 2.5 %-2.5 % 1 applic topical DAILY 08/19/24 08/19/24 Unknown History
topical cream
magnesium hydroxide 400 mg/5 mL 15 ml PO HS PRN constipation 08/19/24 08/19/24 Unknown History
oral suspension (Milk of Magnesia)
ondansetron HCl 4 mg tablet 8 mg PO Q8H PRN nausea/vomiting 08/19/24 08/19/24 Unknown History
prochlorperazine maleate 10 mg 10 mg PO Q6H PRN nausea/vomiting 08/19/24 08/19/24 Unknown History
tablet
sodium phosphates 19 gram-7 118 ml AL ONCE PRN constipation 08/19/24 08/19/24 Unknown History
gram/118 mL enema (Fleet Enema)
sulfamethoxazole 800 1 tab PO Q12H 08/19/24 08/19/24 Unknown History
mg-trimethoprim 160 mg tablet
(Bactrim DS)
zinc oxide 13 % topical cream 1 applic topical Q12H 08/19/24 08/19/24 Unknown History
Active Medications
Generic Name Dose Route Start Last Admin
Trade Name Freq PRN Reason Stop Dose Admin
Acetaminophen 650 mg 08/19/24 06:02
Acetaminophen 325 Mg Tablet PO 09/16/24 06:01
Q6HPRN PRN
mild pain/ fever>100.5F
Acetaminophen 650 mg 08/19/24 08:29
Acetaminophen 650 Mg Rectal Suppository RECTAL 09/16/24 08:28
Q4HPRN PRN
fever/pain unable to take oral
Heparin Sodium 5,000 units 08/19/24 08:00
Heparin 5,000 Units/Ml 1 Ml Vial SC 09/16/24 07:59
Q8 ANTHONY
Hydrocortisone Sodium Succinate 25 mg 08/19/24 16:00
Hydrocortisone Sodium Succinate 100 Mg/2 Ml Vial IV 09/16/24 15:59
Q8 ANTHONY
Norepinephrine Bitartrate 4 mg in 250 mls @ 0 mls/hr 08/19/24 06:02 08/19/24 06:53
Levophed IV 250 mls
PER PROTOCOL ANTHONY Administration
Protocol
Per Protocol
Vancomycin HCl 1 each/ Device 0 mls @ 0 mls/hr 08/19/24 06:02
IV
PER PROTOCOL ANTHONY
As Directed
Dextrose/Lactated Ringer's 1,000 mls @ 100 mls/hr 08/19/24 06:02
D5lr IV
.Q10H ANTHONY
Vasopressin 20 units in 100 mls @ 0 mls/hr 08/19/24 06:45
Pitressin IV
PER PROTOCOL ANTHONY
Protocol
Per Protocol
Piperacillin Sod/Tazobactam Sod 2.25 grams in 50 mls @ 100 mls/hr 08/19/24 08:00
Zosyn IV
Q6H ANTHONY
Levofloxacin/Dextrose 750 mg in 150 mls @ 100 mls/hr 08/21/24 10:00
Levaquin IV
Q48H ANTHONY
Ondansetron HCl 4 mg 08/19/24 06:02
Ondansetron 4 Mg/2 Ml Vial IV 09/16/24 06:01
Q6HPRN PRN
NAUSEA/VOMITING
Pantoprazole Sodium 40 mg 08/19/24 08:00
Pantoprazole Sodium 40 Mg/10 Ml Vial IV 09/16/24 07:59
DAILY ANTHONY
Sodium Chloride 0 flush 08/19/24 05:00
Sodium Chloride 0.9% (Flush) Syringe IV 09/16/24 04:59
PER PROTOCOL ANTHONY
Sodium Chloride 10 ml 08/19/24 08:00
Sodium Chloride 0.9% (Preservative Free) 10 Ml Vial IV 09/16/24 07:59
DAILY ANTHONY
Review of Systems
-
History Source: Records ([facility], [facility])
All Other Systems: Reviewed and Negative
Constitutional: Reports Weight Loss, No Appetite and Weakness
Physical Exam
-
Appears frail but non-toxic, setting up in bed speaking with family
Heart RRR
Lungs clear anteriorly
Abd soft
No C/C/E
Grossly non-focal
Labs
Lab Results
WBC 11.9 10^3/uL (4.8-10.8) H 08/19/24 00:37
RBC 3.27 10^6/uL (4.20-5.40) L 08/19/24 00:37
Hgb 9.5 g/dL (12.0-16.0) L 08/19/24 00:37
Hct 29.5 % (37.0-47.0) L 08/19/24 00:37
MCV 90.2 fL (81.0-99.0) 08/19/24 00:37
MCH 29.1 pg (27.0-31.0) 08/19/24 00:37
MCHC 32.2 g/dL (33.0-37.0) L 08/19/24 00:37
RDW 16.5 % (11.5-14.5) H 08/19/24 00:37
Plt Count 337 10^3/uL (130-400) 08/19/24 00:37
MPV 9.3 fL (7.4-10.4) 08/19/24 00:37
Creatinine 1.4 mg/dL (0.6-1.0) H 08/19/24 00:37
Vital Signs
Vital Signs
Temp Pulse Resp BP Pulse Ox
98.0 F 91 12 125/50 100
08/19/24 08:21 08/19/24 07:20 08/19/24 07:20 08/19/24 07:20 08/19/24 07:23
[2024-08-19] MEDS: NSS (PRESERVATIVE FREE) 10 ML IV (09:10)
[2024-08-19] MEDS: HEPARIN 5000 UNITS SC ×3 (09:10→23:41)
[2024-08-19] MEDS: PROTONIX IV 40 MG IV (09:10)
[2024-08-19] MEDS: ZOSYN 50 IV ×3 (09:14→20:06)
[2024-08-19] MEDS: D5/0.9% SODIUM CHLORIDE 1000 IV ×2 (09:16→20:06)
--- NOTE | 2024-08-19 11:00 | PTCARENOTE ---
report received from previous RN. pt resting in bed, arouses easily to voice. orientedx3- states has difficulty speaking due to mouth being try at nights- mouth swabs provided. generalized weakness throughout. SR on telemetry heart rate 70-80s.
pulses palpable. +1 generalized edema. pt on 4L nasal cannula, sat 99%. lung sounds diminished in bases. hypoactive bowel sounds. purewick in place. vaso and levo infusing via right port. see worklist for full nursing assessment and interventions.
--- NOTE | 2024-08-19 11:04 | PHA.VAN.IN ---
Assessment
- Assessment
Renal Function: Unknown baseline
Maximum Temperature: 102.1 F
Concomitant Antimicrobials: PIPERACILLIN/TAZOBACTAM, LEVOFLOXACIN
Plan
- Plan
Initial / Loading Dose: VANCO 1500MG X1
Monitoring: RANDOM 08/20 @0600
Pharmacokinetics Vancomycin I
- -
Patient Age: 79
Patient Sex: Female
Vancomycin Day #: 1
Indication: Genito-Urinary Tract
Requesting Provider: DR. ELLIS
Height / Weight:
Height 5 ft 4 in
Actual Weight 65.2 kg
Pertinent Past Medical History: METASTATIC ENDOMETRIAL CANCER
- Vital Signs / Lab Results
Temp Pulse Resp BP Pulse Ox
98.0 F 91 12 125/50 100
08/19/24 08:21 08/19/24 07:20 08/19/24 07:20 08/19/24 07:20 08/19/24 07:23
Lab Results - Hematology
08/19/24
00:37
WBC 11.9 H
Band Neutrophils 24 H
Lab Results - Chemistry
08/19/24
00:37
BUN 19 H
Creatinine 1.4 H
Estimated Creat Clear 29
Albumin 2.1 L
08/19/24 08/19/24 08/19/24
00:37 04:24 06:52
Lactic Acid 5.8 H* 4.3 H* 3.7 H
Lab Results - Urine
08/19/24
01:52
Urine Nitrite (Reflex) Negative
Leukocyte Esterase Rfl Negative
Urine WBC (Reflex) 11-15 A
Ur Squamous Epith Cells 6-10
Urine Bacteria (Reflex) Few A
Microbiology Results
08/19/24 00:25 Influenza Types A & B (IKER) - Final
Nasal Swab Negative for Influenza A & B, NAAT
Negative results must be combined with clinical observations
and patient history.
Nucleic Acid Amplification test (NAAT)performed on the
[employer] ID NOW platform.
[2024-08-19 11:58] LABS: Glucose - Point of Care 153 mg/dl (70-99)
[2024-08-19 11:59] LABS: INR 1.36
[2024-08-19 12:04] LABS: Lactic Acid 3.1 mmol/L (0.7-2.0)
--- NOTE | 2024-08-19 13:32 | W.PN.UPDATE ---
Update Note
Progress Note Update
CT guided drainage catheter placement into retroperitoneal abscess, yielding 60 mL pus. Sent for C+S.
Patient tolerated well.
[2024-08-19] MEDS: CATHFLO/ACTIVASE 2 MG INTRACATH (14:10)
--- NOTE | 2024-08-19 14:13 | PTCARENOTE ---
received patient back from IR- drain placed in left flank. LORETTA drain with small amount of bloody drainage. foam placed on skin on left back and covered drain stop cock with abd to help protect skin. vital signs stable. remains on 10 levophed and 0.04
vasopressin. family at bedside. updated on plan of care
[2024-08-19] MEDS: SOLU-CORTEF 25 MG IV ×2 (15:38→23:41)
[2024-08-19] MEDS: ZOFRAN 4 MG IV (15:39)
--- NOTE | 2024-08-19 16:26 | CHAP ---
Called by ICU staff for Becki and family. She was awake and alert, and spoke softly. She requested a junk dealer visit and Sacrament of the Sick. I contacted [facility], and Fr. Stewart agreed to come. Meanwhile I prayed with Becki and her daughter,
and provided a prayer blanket. Assured the family of our on-going availability.
[2024-08-19 16:32] LABS: Lactic Acid 2.7 mmol/L (0.7-2.0)
--- NOTE | 2024-08-19 16:45 | CM ---
Alert awake oriented patient who was at [facility] before coming to .She is assisted in all activities of daily living.She uses a walker. Pt in ICU with Septic Shock.
had [facility]
Pharmacy [facility]
PCP Almita Alonso Delfino
PLAN After seeing pt . Received a consult for Hospice . Spoke with leonard Jones she requested Hospice. Oncall hospice notified referral in care port
[2024-08-19] MEDS: TYLENOL 650 MG PO ×2 (16:49→23:49)
--- NOTE | 2024-08-19 19:34 | PTCARENOTE ---
Assumed care of pt. approx 1900.
Remains on norepi, titrated down, see flow sheets for details.
Remains NSR w.o ectopy, Normothermic.
Focally intact, anicteric appearing sclera, normocephalic.
Plan of care explained to family, and patient bedside.
--- NOTE | 2024-08-19 23:32 | PTCARENOTE ---
No change in pt. assessment.
[2024-08-20] VITALS (52 sets, daily range): BP systolic 87–143; BP diastolic 46–108; PULSE 84; BMI 24.9
[2024-08-20 00:02] LABS: Lactic Acid 2.5 mmol/L (0.7-2.0)
[2024-08-20] MEDS: DILAUDID 0.5 MG IV ×3 (01:30→22:07)
[2024-08-20] MEDS: ZOSYN 50 IV ×4 (01:30→20:11)
[2024-08-20] MEDS: D5/0.9% SODIUM CHLORIDE 1000 IV ×2 (03:43→17:07)
[2024-08-20] MEDS: LEVOPHED 250 IV (03:43)
--- NOTE | 2024-08-20 03:52 | PTCARENOTE ---
Pt. having increased pain at drain insertion site. PRNs ordered.
[2024-08-20 04:16] LABS: PT 17.4 Sec (11.4-14.6)
[2024-08-20 04:26] LABS: Lactic Acid 2.3 mmol/L (0.7-2.0)
[2024-08-20 04:28] LABS: Hematocrit 23.8 % (37.0-47.0); Hemoglobin 7.9 g/dL (12.0-16.0); Mean Corp Hgb Conc. 33.2 g/dL (33.0-37.0); Mean Corpuscular Volume 87.5 fL (81.0-99.0); Mean Platelet Volume 9.6 fL (7.4-10.4); Platelet Count 281 10^3/uL (130-400); Red Blood Cell Count 2.72 10^6/uL (4.20-5.40); Red Cell Dist. Width 16.6 % (11.5-14.5); White Blood Cell Count 33.1 10^3/uL (4.8-10.8)
[2024-08-20 04:33] LABS: APTT > 200 Sec (23.4-35.0)
[2024-08-20 05:03] LABS: ALT (SGPT) 13 U/L (0-35); AST (SGOT) 36 U/L (14-36); Albumin 2.3 g/dl (3.5-5.0); Alkaline Phosphatase 151 U/L (38-126); Blood Urea Nitrogen 17 mg/dl (7-17); Calcium 7.8 mg/dl (8.4-10.2); Carbon Dioxide 20 mmol/L (22-30); Chloride 105 mmol/L (98-107); Estimated Creatinine Clearance 34 ml/min; Glucose 136 mg/dl (70-99); Magnesium 1.6 mg/dl (1.6-2.3); Potassium 4.8 mmol/L (3.5-5.1); Sodium 132 mmol/L (135-145); Total Bilirubin 0.4 mg/dl (0.2-1.3); Total Protein 4.9 g/dl (6.3-8.2); eGFR 46.62
[2024-08-20 06:12] LABS: Cortisol, Random > 123.0 ug/dl
--- NOTE | 2024-08-20 06:22 | W.PN.URO.CBU ---
Today's Communication / Plan
-
no new urology recs
Assessment / Plan
-
somewhat improved since IR drain placed into left perinephric/RP abscess -- WBC is up, lactic acid is down
short-term prognosis has improved, long-term remains grim
Diagnosis
-
Date of Service: August 20, 2024
-
Patient Diagnosis:
Left Pyelonephritis with contiguous abscess
metastatic endometrial cancer
Objective
-
Vital Signs
Temp Pulse Resp BP Pulse Ox
99 F 54 10 113/56 99
08/20/24 05:30 08/20/24 05:30 08/20/24 05:30 08/20/24 05:30 08/20/24 05:30
Intake and Output
08/18/24 08/19/24 08/20/24
06:59 06:59 06:59
Intake Total 3441.5 / 3441.5
Output Total 1180 / 1180
Balance 2261.5 / 2261.5
Intake:
Oral fluids 640 / 640
IV fluids (Total) 2691.5 / 2691.5
D5lr 1,000 ml @ 100 mls/hr IV . 1999
Q10H [facility] Rx#:[id number]
Levophed 607.5 / 607.5
vasopressin 84 / 84
IV piggybacks 100 / 100
Amount instilled into Drain (
Total)
Left Back Jordan-Lafleur Placed
in IR
Output:
Drain Output (Total)
Left Back Jordan-Lafleur Placed
in IR
Urine, Voided 1170 / 1170
Other:
How many times incontinent 1
SATURATED amount urine
Laboratory Results
08/20/24 03:44
08/20/24 03:44
Physical Exam
-
General - well developed, well nourished, no acute distress
Chest - clear bilaterally
Abdomen - soft, non-tender, positive bowel sounds, no CVAT, no incisional pain or distention
Genitalia - normal
Rectal - normal
Skin - warm & dry with no rash
Neuro - AOx3, no motor deficits
Extremities - no clubbing, no cyanosis, no edema
Incision - clean, dry
Dressing - clean, dry, intact
[2024-08-20] MEDS: SOLU-CORTEF 25 MG IV (07:40)
[2024-08-20] MEDS: PROTONIX IV 40 MG IV (07:40)
[2024-08-20] MEDS: NSS (PRESERVATIVE FREE) 10 ML IV (07:41)
[2024-08-20] MEDS: HEPARIN SC (07:41)
--- NOTE | 2024-08-20 07:44 | W.PN.INTV ---
Today's Communication / Plan
Recommendations
Weaning off pressors, likely to be off by today
Continue abx per ID, drain placed 08/19
Encouraged OOB today, PT eval
Hospice to follow along, possibly could set up home discharge
If continues to do well, can transfer out of ICU later today
Assessment
-
Patient is a 79-year-old female with previous history of metastatic endometrial cancer on chemotherapy presenting to ER with evaluation of hypotension and fatigue. Patient was recently [facility] for weakness and hypotension that delayed
planned chemotherapy (discharged on 08/17). She had urine culture that grew multidrug-resistant E. coli and treated with Bactrim, currently on day 2 of 5. Patient was discharged back to her nursing facility and the she was lethargic but oriented and
in no acute distress. Developed hypotension, EMS notified, on arrival she was reportedly hypoglycemic, received a D10. In ER, she remains hypotensive, placed on pressors. Tmax 102.1F, UA with few bacteria but overall negative for UTI, CT AP
showing large left retroperitoneal collection of fluid and air contiguous with the left kidney, left ureter, and duodenum, likely representing a large retroperitoneal abscess and/or emphysematous pyelonephritis. She is admitted to ICU for septic
shock.
Septic shock on pressors
Urosepsis with retroperitoneal abdominal abscess on CT
Complicated UTI, recent history of multidrug-resistant E. coli with recent hospitalization [facility]
Leukocytosis with bandemia
Lactic acidosis
Hyponatremia
SHEY, creatinine 1.4 (unknown baseline)
Metabolic acidosis
Conditions present prior to admission
Endometrial cancer
Plan
No current signs of metabolic encephalopathy or MS changes/following commands
Denies pain at this time.
Pain/sedation: PRN
RASS goals: 0
Hemodynamically unstable, requiring pressors.
Requiring pressors: levo@4, off vasopressin---improving, weaning to off
Cardiac history reviewed--none
No prior ECHO for review
Monitor on telemetry
Oxygen needs: stable on NC
Prior history of lung disease: none
Supplemental O2 as indicated to maintain sats > 89%
Aspiration precautions, HOB > 30 [address]
CXR/CT reviewed indicating small R sided eff vs atelectasis, not likely acute
Repeat imaging PRN
CT AP showing extensive necrotic infection/abscess of L sided related to MDRO E.coli
IR consult for perc drain-placed 08/19
Diet advancement
SHEY present, no history of chronic renal disease
L sided diseased ureter/kidney, Urology input was that nothing can be offered surgically
She has declined major intra-abd surgery
Void trials
Follow urine output, critical I/Os
Replete electrolytes as needed
Fever and increased WBC on presentation, suspect underlying urosepsis, necrotic abdomen
Started on empiric antibiotics
ID following, appreciate recs
Cultures sent/pending
Follow fever trend, WBC count
Lactate elevated on admission, continue to trend until <2
CBC stable, no signs of bleeding or coagulopathy.
DVT prophylaxis as assessed based on risk, including mechanical SCDs
Can transfuse if indicated for Hb <7, plt < 10
INR WNL
No prior h/o diabetes or thyroid disease
Monitor accuchecks PRN/SS coverage if needed
Prognosis overall poor, she is DNR
Family Discussions
We had a prolonged discussion regarding her prognosis and recent development with CT abdomen pelvis findings. This does not to have a surgical intervention that would change her mortality, nor is it offered. We have discussed the role of inserting
a percutaneous tube, the patient was unsure how she would like to proceed. I had numerous conversations with her daughter and her son, and we discussed this at length. The patient has finally agreed to continue, IR was notified. We also discussed
the role of hospice, patient was agreeable to consult. We will place order and follow-up goals of care conversations.
Diagnostic Data
Chest X-Ray: 08/19/24- Left basilar opacification which could represent subsegmental atelectasis and/for pneumonia.
CT Scan: AP 08/19/24- 1. Large left retroperitoneal collection of fluid and air, which is contiguous with the left kidney, left ureter, and duodenum, as detailed above. Findings likely represent large retroperitoneal abscess and/or emphysematous
pyelonephritis. Associated malignancy and/or necrotic tumor may also be present.
2. Fistulization to the fourth portion of the duodenum may also be present.
3. Multiple hepatic lesions as detailed above, most likely representing hepatic metastatic lesions, however given large retroperitoneal abscess, these may also represent hepatic abscesses.
4. The left kidney has minimal cortical function. There is minimal enhancement and no significant excretion of contrast.
5. Left adrenal mass.
6. Small bilateral pleural effusions. Mild bibasilar subsegmental atelectasis.
Echo:
PFT's:
Reports and relevant images were personally reviewed.
Critical Care time 36 mins -- The patient is admitted for acute critical illness for the treatment of vital organ failure and/or prevention of further life-threatening conditions. Total care includes time spent in review of history, physical exam,
medications, hemodynamic/ventilator parameters, laboratory data, imaging and discussion with house staff, pharmacy, respiratory therapy, ornamental machine operator, and nursing. Discussed plan of care with care team at length.
Subjective Dataa
Subjective Data
Date of Service:
Date of Service: August 20, 2024
Chief Complaint: [employer] Specialist Follow Up
Subjective:
Doing well today, weaning pressors down
No new complaints
Objective Data
Data Reviewed
Vital Signs / I&O / Oxygen:
Vital Signs
Temp Pulse Resp BP Pulse Ox
99 F 54 10 113/56 99
08/20/24 05:30 08/20/24 05:30 08/20/24 05:30 08/20/24 05:30 08/20/24 05:30
Intake and Output
08/19/24 08/20/24 08/21/24
06:59 06:59 06:59
Intake Total 3441.5 / 3441.5
Output Total 1180 / 1180
Balance 2261.5 / 2261.5
SaO2 99
Nasal Cannula flow liters per 4
minute
Physical Exam
General: Comfortable and Other (NAD)
HEENT: Normocephalic, Anicteric and Moist Mucous Membranes
Cardiovascular: S1-S2 and Regular Rhythm
Respiratory: Clear and Non-Labored Respirations
GI: Soft, Non Distended and Non Tender
Neurology: Awake, Alert, Oriented and No Motor Deficits
Skin: Warm, Dry and Good Color
Labs/Micro/Reports
Lab Data
08/20/24 03:44
08/20/24 03:44
Laboratory Results
08/19/24 08/20/24
11:34 03:44
PT 17.0 H 17.4 H
INR 1.36 1.40
APTT > 200 H*
Microbiology
08/19/24 06:52 Blood/Venous Blood Culture - Preliminary
No Growth in 24 hours- Final report to follow
08/19/24 00:26 Blood/Venous Blood Culture - Preliminary
No Growth in 24 hours- Final report to follow
08/19/24 00:38 Blood/Venous Blood Culture - Preliminary
No Growth in 24 hours- Final report to follow
08/19/24 00:25 Nasal Swab Influenza Types A & B (IKER) - Final
Negative for Influenza A & B, NAAT
Negative results must be combined with clinical observations
and patient history.
Nucleic Acid Amplification test (NAAT)performed on the
[employer] platform.
--- NOTE | 2024-08-20 07:53 | W.PN.HOSP.TC ---
Today's Communication/Plan
-
wean pressors
wean steroids
cont ABX
await cultures
PT/OT/speech
restart meds
hospice consult
Assessment / Plan
Assessment / Plan
pt is a 79 year old female
Septic shock on pressors --patient presented from [facility] where she was there 1 night after hospital stay at [facility]--possible complicated UTI with pyelitis/pyelonephritis/pelvic abscess from left kidney with possible
infected tumor (pt also with recent h/o of multidrug resistant E. 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
abscess), culture pending--cont vanco/zosyn/levaquin--weaning levophed--cont IVF, weaning stress dose steroids
Metastatic endometrial cancer--diagnosed 10 years ago and had chemotherapy/radiation therapy, did well until 5 years ago when a 'spot' was noted in her mid abdomen at which time she received radiation therapy/letrozole, approximately March 2024
'spot' was growing and patient restarted chemotherapy in June 2024 and had 2 rounds. Third round of chemo was postponed due to multidrug-resistant infection and hospitalization at [place]--- patient met with palliative care while at [place]
but has not signed up to participate--and is not on hospice--apprec oncology
DVT Proph - heparin sq
Code status -DNR. Poor senior care prognosis. Improving in short term--hospice consulted at meeting with patient/family Wednesday--weaning levophed so IF chooses hospice, likely not GIP candidate--explained to daughter 08/19/24 would give patient 24 to
48 hours to see if she responds to antibiotics, fluids, pressors
diet advancing--restart oral meds--PT/OT
Total Critical Care Time 30 minutes. I was immediately available to the patient and staff. I personally examined, reviewed labs, diagnostic images/reports, interpretations, treatment plans, discussed patient care with other providers and family
or caregivers (if patient is unable to make decisions), entered orders as appropriate and documented the medical record.
Anticipated Discharge: > 48 hours
Subjective/Interval History
-
Date of Service: August 20, 2024
pt asking for gabapentin
Objective Data
-
Labs:
Laboratory Results
08/20/24
03:44
WBC 33.1 H
Hgb 7.9 L
Hct 23.8 L
Plt Count 281
PT 17.4 H
INR 1.40
APTT > 200 H*
Sodium 132 L
Potassium 4.8
Chloride 105
Carbon Dioxide 20 L
BUN 17
Creatinine 1.2 H
Glucose 136 H
Calcium 7.8 L
Total Bilirubin 0.4
AST 36
ALT 13
Alkaline Phosphatase 151 H
Vital Signs:
max temp for 24 hours
08/20/24
05:30
Temp 99 F
Vital Signs
Temp Pulse Resp BP Pulse Ox
99 F 54 10 113/56 99
08/20/24 05:30 08/20/24 05:30 08/20/24 05:30 08/20/24 05:30 08/20/24 05:30
I&O
08/19/24 08/20/24 08/21/24
06:59 06:59 06:59
Intake Total 3441.5 / 3441.5
Output Total 1180 / 1180
Balance 2261.5 / 2261.5
Review of Systems
-
All other systems: Reviewed and negative
Physical Exam
-
General: Well Developed, Well Nourished and No Apparent Distress
HEENT: Normocephalic, Atraumatic and Oxygen
Respiratory: Clear to Auscultation; Negative Wheezes or Rhonchi
Cardiac: Regular Rhythm and S1/S2; Negative Murmur
GI: Soft, Nontender, Nondistended and Normal Bowel Sounds
Musculoskeletal: No Clubbing, No Cyanosis and No Edema
Skin: Warm
Neuro: Awake
Psych: Calm
[2024-08-20] MEDS: VANCOCIN 200 IV (08:27)
--- NOTE | 2024-08-20 08:47 | W.PN.ID1 ---
Date of Service
Date of Service: August 20, 2024
Today's Communication
- continue levaquin, vancomycin, zosyn
While there is some interval improvement, the process is not resolvable with antibiotics and drain alone and she is at high risk of relapse with progressively resistant isolates unless the source can be controlled with aggressive surgery. Drainage
alone is likely insufficient in my opinion. Neither would I expect her to be a candidate for chemotherapy unless infection fully removed with surgery and she is recovered. I recommend hospice.
Assessment / Plan
Large Retroperitoneal Mass/abscess with necrosis
Emphysematous Pyelonephritis
Septic Shock - persists, somewhat improved
CKD
Metastatic endometrial cancer
- blood cultures x3 in progress
- abscess culture in progress
- urine culture in progress
- note probable fistulae between the retroperiotneal abscess and duodenum with emphyseamtous pyelonephritsi and suspected necrotic tumor, suspected hepatic abscesses
- drain output 10 ccs yesterday
- continue levaquin, vancomycin, zosyn
While there is some interval improvement, the process is not resolvable with antibiotics and drain alone and she is at high risk of relapse with progressively resistant isolates unless the source can be controlled with aggressive surgery on the
retroperitoneum followed by further assessment of of the liver. Drainage alone is likely insufficient in my opinion. Neither would I expect her to be a candidate for chemotherapy unless infection fully removed with surgery and she is recovered. I
recommend hospice.
Chief Complaint
-: Other (retroperitoneal abscess, necrotic )
Subjective / Review of Systems
no further fevers
pressors weaned somewhat
note progression of leukocytosis on steroids
hgb drop
lactic acidosis improved but not resolved
Vital Signs / Physical Exam
Vital Signs
Vital Signs
Temp Pulse Resp BP Pulse Ox
98.7 F 94 20 123/63 98
08/20/24 08:02 08/20/24 08:02 08/20/24 08:02 08/20/24 08:02 08/20/24 08:04
Physical Exam
Constitutional: Acutely Ill, Chronically Ill and Non-toxic
Cardiovascular: Regular Rate and S1/S2; Negative Murmur or Rub
Pulmonary: Clear and Symmetric; Negative Wheezes or Rales
Gastrointestinal: Soft, Non Tender, Non Distended and Normal Bowel Sounds
Skin: Warm and Dry; Negative Rash or Jaundice
Objective Data
Lab Data
Lab Results
08/20/24 03:44
08/20/24 03:44
PT 17.4 Sec (11.4-14.6) H 08/20/24 03:44
INR 1.40 08/20/24 03:44
APTT > 200 Sec (23.4-35.0) H* 08/20/24 03:44
Estimated Creat Clear 34 ml/min 08/20/24 03:44
Lactic Acid 2.3 mmol/L (0.7-2.0) H 08/20/24 03:44
Total Bilirubin 0.4 mg/dl (0.2-1.3) 08/20/24 03:44
AST 36 U/L (14-36) 08/20/24 03:44
ALT 13 U/L (0-35) 08/20/24 03:44
Alkaline Phosphatase 151 U/L (38-126) H 08/20/24 03:44
Most recent labs reviewed.
Micro Results:
08/19/24 06:52 Blood Culture - Preliminary
Blood/Venous No Growth in 24 hours- Final report to follow
08/19/24 00:26 Blood Culture - Preliminary
Blood/Venous No Growth in 24 hours- Final report to follow
08/19/24 00:38 Blood Culture - Preliminary
Blood/Venous No Growth in 24 hours- Final report to follow
08/19/24 13:33 Wound Culture - Pending
Abscess Gram Stain - Pending
08/19/24 11:34 Blood Culture - Pending
Blood/Venous
08/19/24 01:52 Urine Culture - Pending
Urine
08/19/24 00:25 Influenza Types A & B (IKER) - Final
Nasal Swab Negative for Influenza A & B, NAAT
Negative results must be combined with clinical observations
and patient history.
Nucleic Acid Amplification test (NAAT)performed on the
[employer] platform.
[2024-08-20] MEDS: NEURONTIN 300 MG PO ×2 (09:10→20:11)
[2024-08-20] MEDS: ZOFRAN 4 MG IV (09:17)
--- NOTE | 2024-08-20 09:59 | PTOTSP ---
Speech Therapy
Presentation: Patient was oriented, participatory and cooperative. Patient's speech and language appeared to be WNL during conversation.
Swallowing Function: Patient reports inconsistent poor appetite and poor intake. VOLUMETRIC WEIGHER observed patient with several bites of regular consistency solids and sips of thin liquids (straw) in which patient appeared to tolerate as she did not exhibit any
overt clinical s/sx of aspiration or difficulty with mastication/ manipulation.
Per RN, patient tolerated medications whole with thin liquids.
Recommendations:
1) Continuation of reg/ thin liquids
2) Aspiration precautions
3) Medications as tolerated
Plan: VOLUMETRIC WEIGHER will continue to follow to ensure tolerance of diet; pending hospitalization.
[2024-08-20] MEDS: TYLENOL 650 MG PO (10:03)
[2024-08-20 10:35] LABS: % Immature Granulocytes 7.7 % (0-0.5); % Lymphocytes 2.6 % (20.5-51.1); % Monocytes 3.1 % (1.7-9.3); % Neutrophils 86.6 % (42.2-75.2); Absolute Immature Granulocytes 2.6 10^3/uL (0-0.05); Absolute Lymphocytes 0.9 10^3/uL (1.2-3.4); Absolute Neutrophils 28.6 10^3/uL (1.4-6.5); Nucleated Red Blood Cells % 0 %
--- NOTE | 2024-08-20 11:00 | PHA.VAN.FU ---
Vancomycin Assessment / Plan
- Assessment
Renal Function: SCR Decreasing
WBC's are: Trending Up
In the past 24 hrs, patient has been: Afebrile
Concomitant Antimicrobials: PIPERACILLIN/TAZOBACTAM
- Assessment - Therapeutic Drug Monitoring
Random Level: 9.0 DRAWN ~24 HOURS AFTER PREVIOUS DOSE 08/19 @0335 VANCO 1500MG
- Dosing Plan
Dosing by Level: Re-dose today (VANCO 1000MG X1)
- Monitoring Plan
Random Level: 08/21 @0600
- Follow Up
Pharmacy will continue to follow.
Vancomycin Follow UP
- -
Patient Age: 79
Patient Sex: Female
Vancomycin Day #: 2
Indication: Genito-Urinary Tract
Requesting Provider: DR. ELLIS
Height / Weight:
Height 5 ft 4 in
Actual Weight 65.8 kg
Pertinent Past Medical History: METASTATIC ENDOMETRIAL CANCER
- Vital Signs / Lab Results
Temp Pulse Resp BP Pulse Ox
98.7 F 73 12 118/61 98
08/20/24 08:02 08/20/24 10:00 08/20/24 10:00 08/20/24 10:00 08/20/24 08:04
Lab Results - Hematology
08/19/24 08/20/24
00:37 03:44
WBC 11.9 H 33.1 H
Band Neutrophils 24 H
Lab Results - Chemistry
08/19/24 08/20/24
00:37 03:44
BUN 19 H 17
Creatinine 1.4 H 1.2 H
Estimated Creat Clear 29 34
Albumin 2.1 L 2.3 L
08/19/24 08/19/24 08/19/24
00:37 04:24 06:52
Lactic Acid 5.8 H* 4.3 H* 3.7 H
08/19/24 08/19/2425
10:02 11:45 12:45
Lactic Acid Cancelled 3.1 H Cancelled
08/19/24 08/19/24 08/19/24
14:02 16:12 20:02
Lactic Acid Cancelled 2.7 H 3.0 H
08/19/24 08/20/24
23:40 03:44
Lactic Acid 2.5 H 2.3 H
Microbiology Results
08/19/24 13:33 Wound Culture - Preliminary
Abscess Viridans Streptococcus Group
08/19/24 06:52 Blood Culture - Preliminary
Blood/Venous No Growth in 24 hours- Final report to follow
08/19/24 00:26 Blood Culture - Preliminary
Blood/Venous No Growth in 24 hours- Final report to follow
08/19/24 00:38 Blood Culture - Preliminary
Blood/Venous No Growth in 24 hours- Final report to follow
08/19/24 00:25 Influenza Types A & B (IKER) - Final
Nasal Swab Negative for Influenza A & B, NAAT
Negative results must be combined with clinical observations
and patient history.
Nucleic Acid Amplification test (NAAT)performed on the
[employer] platform.
Therapeutic Drug Monitoring
Random Vancomycin 9.0 ug/ml 08/20/24 03:44
--- NOTE | 2024-08-20 12:16 | HOSPNOTE ---
Late Entry for 08/19/24- Referral received. Spoke to dahiana Dickerson- Reviewed inpatient hospice vs home hospice. She asked for a in person intro today with herself and patient. In person intro arranged for early afternoon on 08/20. More information
to follow. CM and Attending updated.
--- NOTE | 2024-08-20 12:19 | CHAP ---
Becki was calmer today, still feeling 'confused about what to do next.' Emotional and spiritual support provided.
--- NOTE | 2024-08-20 12:58 | PTCARENOTE ---
Updated vital signs thru progressive wean of levophed. Assessment unchanged and as documented. Continue follow up plan of cares with patient and family. Antibiotics as per infectious disease team. At bedside earlier this shift. [employer] team in
and out at bedside this morning. Updated skin cares, wound cares, turning protocols and follow up skin assessments. Tolerating po diet, doing well with supplementation (protein shake), continue to encourage po intake. appetite fair. Continue follow
up teaching. Supportive cares ongoing.
--- NOTE | 2024-08-20 13:20 | HOSPNOTE ---
Met with patient and daughter Jayla at bedside to provide introduction to hospice. Discussed hospice philosophy and GIP vs hospice at home. Patient presently being weaned off pressors, Bp stable. Undecided if she wants to fight or halt all
treatment as things seems to have started to improve the last 24 hours. Daughter and patient would like time to think about transitioning to comfort care/hospice. Patient preferably would like to be on hospice inpatient as it would be ideal,
financially, and not be burdensome to her family. Discussed criteria she needs to meet to be GIP eligible. Daughter and patient vocalized understanding and request time to think on things. Patient voiced that she would need to set up caregivers at
home if she would opt to be on hospice and does not meet GIP criteria. Would like to wait and see how the next day or so goes. Updated CM and attending on plan. Hospice will follow up tomorrow.
--- NOTE | 2024-08-20 15:34 | PTCARENOTE ---
Patient working with PT/OT. Family continues in and out at bedside. Continue to reinforce teaching. Reinforce importance of early mobility. Two large loose bm noted. Continue frequent skin monitoring. Frequent position changes. Ongoing input output
and follow stool characteristics. Await evaluation from pt/ot. Continue supportive cares and emotional support.
[2024-08-20] MEDS: SOLU-CORTEF 12.5 MG IV ×2 (17:03→23:33)
[2024-08-20] MEDS: HEPARIN 5000 UNITS SC ×2 (17:03→23:33)
--- NOTE | 2024-08-20 20:00 | PTCARENOTE ---
Rec'd pt resting in bed, dtr at bedside, oriented, cooperative, anxious , procedures explained to pt, SR, to keep map > 65 w/ levo- presently at 1 montserr[place], weak distal pulses, + LE edema, O2 2 liters nc, lungs decr in bases, sat 100, + bowel sounds, inc
brown soft bm, cornell care given, poor appetite, rogers sips h20, Left flank LORETTA to bulb, draining purulent fluid- sm amtabd soft, purewick removed due to stool, inc of urine, calazyme applied to perineum
[2024-08-20] MEDS: FLORASTOR 250 MG PO (20:11)
--- NOTE | 2024-08-20 22:08 | PTCARENOTE ---
dilaudid 0.5 mg iv given for pain
[2024-08-21] VITALS (25 sets, daily range): BP systolic 86–133; BP diastolic 50–83; BMI 26.0
--- NOTE | 2024-08-21 | PTCARENOTE ---
sys reviewed, changes noted, CHG bath done, linens changed
[2024-08-21] MEDS: ZOSYN 50 IV ×4 (02:02→19:14)
--- NOTE | 2024-08-21 04:03 | PTCARENOTE ---
sys reviewed, changes noted
[2024-08-21 04:31] LABS: Hematocrit 22.3 % (37.0-47.0); Hemoglobin 7.3 g/dL (12.0-16.0); Mean Corp Hgb Conc. 32.7 g/dL (33.0-37.0); Mean Corpuscular Volume 88.5 fL (81.0-99.0); Mean Platelet Volume 9.9 fL (7.4-10.4); Platelet Count 237 10^3/uL (130-400); Red Blood Cell Count 2.52 10^6/uL (4.20-5.40); Red Cell Dist. Width 16.9 % (11.5-14.5); White Blood Cell Count 22.4 10^3/uL (4.8-10.8)
[2024-08-21 05:10] LABS: ALT (SGPT) 17 U/L (0-35); AST (SGOT) 41 U/L (14-36); Albumin 1.9 g/dl (3.5-5.0); Alkaline Phosphatase 138 U/L (38-126); Blood Urea Nitrogen 17 mg/dl (7-17); Calcium 7.8 mg/dl (8.4-10.2); Carbon Dioxide 22 mmol/L (22-30); Chloride 106 mmol/L (98-107); Estimated Creatinine Clearance 34 ml/min; Glucose 106 mg/dl (70-99); Magnesium 1.6 mg/dl (1.6-2.3); Potassium 4.4 mmol/L (3.5-5.1); Sodium 135 mmol/L (135-145); Total Bilirubin 0.3 mg/dl (0.2-1.3); Total Protein 4.6 g/dl (6.3-8.2); eGFR 46.62
[2024-08-21 05:13] LABS: Vancomycin Random 13.4 ug/ml
[2024-08-21] MEDS: DILAUDID 0.5 MG IV ×3 (05:42→13:51)
--- NOTE | 2024-08-21 05:43 | PTCARENOTE ---
dilaudid 0.5mg iv given for pain
[2024-08-21] MEDS: MAGNESIUM SULFATE 102 GRAMS IV (06:16)
--- NOTE | 2024-08-21 07:55 | W.PN.INTV ---
Today's Communication / Plan
Recommendations
Continue abx per ID, drain placed 08/19 - trend output
ID on board --> since family does not want hospice at this juncture, would appreciate ID recs on ABx duration
Encouraged OOB today, PT eval - rec'd skilled rehab
Hospice to follow along, possibly could set up home discharge although family wants to take it day by day for now
Patient is stable for downgrade out of ICU to telemetry. No additional recommendations at this time. Package Center Supervisor/Pulmonary service will now sign off. Please reconsult if there are any additional questions/concerns, or if patient's respiratory
status deteriorates.
Assessment
-
Patient is a 79-year-old female with previous history of metastatic endometrial cancer on chemotherapy presenting to ER with evaluation of hypotension and fatigue. Patient was recently admitted to [facility] for weakness and hypotension that delayed
planned chemotherapy (discharged on 08/17). She had urine culture that grew multidrug-resistant E. coli and treated with Bactrim, currently on day 2 of 5. Patient was discharged back to her nursing facility and the she was lethargic but oriented and
in no acute distress. Developed hypotension, EMS notified, on arrival she was reportedly hypoglycemic, received a D10. In ER, she remains hypotensive, placed on pressors. Tmax 102.1F, UA with few bacteria but overall negative for UTI, CT AP
showing large left retroperitoneal collection of fluid and air contiguous with the left kidney, left ureter, and duodenum, likely representing a large retroperitoneal abscess and/or emphysematous pyelonephritis. She is admitted to ICU for septic
shock.
Septic shock on pressors - off pressors since 2AM on 08/21/2024
Sepsis due to UTI with retroperitoneal abdominal abscess on CT
Complicated UTI, recent history of multidrug-resistant E. coli with recent hospitalization at [facility]
Leukocytosis with bandemia
Lactic acidosis - improving
Hyponatremia - resolved
SHEY, creatinine 1.4 (unknown baseline) - stable Cr at 1.2 today
Metabolic acidosis - resolved
Conditions present prior to admission
Endometrial cancer
Plan
No current signs of metabolic encephalopathy or MS changes/following commands
Denies pain at this time.
Pain/sedation: PRN
Hemodynamically stable since overnight and remains normotensive with SBP>110 for >6-8 hours now
Cardiac history reviewed--none
No prior ECHO for review
Monitor on telemetry
Oxygen needs: stable on NC
Prior history of lung disease: none
Supplemental O2 as indicated to maintain sats > 89%
If patient continues to require oxygen or if resting SaO2 is <96% at rest then check ambulatory pulse oximetry prior to discharge
Aspiration precautions, HOB > 30 [address]
CXR/CT reviewed indicating small R sided eff vs atelectasis, not likely acute
Repeat imaging PRN
CT AP showing extensive necrotic infection/abscess of L side of abdomen which is located within and largely replacing her left kidney--> drain placed by IR with Cx growing Streptococcus viridans
IR consult for perc drain-placed 08/19
Diet advancement as tolerated - she has poor appetite
SHEY present although improved, no history of chronic renal disease
L sided diseased ureter/kidney, Urology input was that nothing can be offered surgically
She has declined major intra-abd surgery
Void trials
Follow urine output, I/O
Replete electrolytes as needed with goal K>4, Mg>2
Fever and increased WBC on presentation, suspect underlying urosepsis, necrotic abdomen
Started on empiric antibiotics
Currently on Vanco/Zosyn
ID following, appreciate recs
Left retroperitoneal collection fluid s/p drain is growing Streptococcus viridans
Follow fever trend, WBC count
Lactate elevated on admission, continue to trend until <2
CBC stable, no signs of bleeding or coagulopathy.
DVT prophylaxis as assessed based on risk, including mechanical SCDs
Can transfuse if indicated for Hb <7, plt < 10-20k
INR WNL
No prior h/o diabetes or thyroid disease
Goal BG >100 and <180
Monitor accuchecks PRN/SS coverage if needed
Prognosis overall poor, she is DNR/DNI
Family Discussions with Dr. Matthews
We had a prolonged discussion regarding her prognosis and recent development with CT abdomen pelvis findings. This does not to have a surgical intervention that would change her mortality, nor is it offered. We have discussed the role of inserting
a percutaneous tube, the patient was unsure how she would like to proceed. I had numerous conversations with her daughter and her son, and we discussed this at length. The patient has finally agreed to continue, IR was notified. We also discussed
the role of hospice, patient was agreeable to consult. We will place order and follow-up goals of care conversations.
GOC discussion with Dr. Smith (08/21/2024): Family understands that the patient is very sick, however the patient is awake and grazing her food and they find this time to be of quality and they do not want her to be enrolled into hospice right now
and stop antibiotics at this time. They do agree that if she were to worsen again or become less responsive that they would want to transition to comfort care at that time, but for now they want take it day-by-day.
Patient is stable for downgrade out of ICU to telemetry. No additional recommendations at this time. Package Center Supervisor/Pulmonary service will now sign off. Thank you for allowing us to be involved in the care of this patient. Please reconsult if there
are any additional questions/concerns, or if patient's respiratory status deteriorates.
Diagnostic Data
Chest X-Ray: 08/19/24- Left basilar opacification which could represent subsegmental atelectasis and/for pneumonia.
CT Scan: AP 08/19/24- 1. Large left retroperitoneal collection of fluid and air, which is contiguous with the left kidney, left ureter, and duodenum, as detailed above. Findings likely represent large retroperitoneal abscess and/or emphysematous
pyelonephritis. Associated malignancy and/or necrotic tumor may also be present.
2. Fistulization to the fourth portion of the duodenum may also be present.
3. Multiple hepatic lesions as detailed above, most likely representing hepatic metastatic lesions, however given large retroperitoneal abscess, these may also represent hepatic abscesses.
4. The left kidney has minimal cortical function. There is minimal enhancement and no significant excretion of contrast.
5. Left adrenal mass.
6. Small bilateral pleural effusions. Mild bibasilar subsegmental atelectasis.
Reports and relevant images were personally reviewed.
Total time spent today was 57 minutes for this encounter. Time includes reviewing laboratory test/imaging results, reviewing pertinent medical records, obtaining and reviewing medical history, performing an appropriate exam, ordering medications,
tests and procedures. Time also includes documentation of this encounter, coordinating patient care and communicating with other healthcare professionals. Total time does not include separately billed tests performed on this date of service.
Subjective Dataa
Subjective Data
Date of Service:
Date of Service: August 21, 2024
Chief Complaint: Package Center Supervisor Follow Up
Subjective:
Pt was seen and evaluated this AM. Off levophed since yesterday. Abdominal LORETTA draining purulent fluid - 20cc drained overnight. HR 78, BP 117/73 and SpO2 100% on 2L/min. Met with the children today, Jayla + Neel, and answered all their
questions. Patient currently denies chest pain, [place], abdominal pain, nausea, fevers chills. She is eating small amounts of food without any indigestion.
Review of Systems
General: Other (Negative unless mentioned above)
Objective Data
Data Reviewed
Vital Signs / I&O / Oxygen:
Vital Signs
Temp Pulse Resp BP Pulse Ox
97.7 F 69 13 109/52 99
08/21/24 04:00 08/21/24 06:00 08/21/24 05:30 08/21/24 06:00 08/21/24 06:00
Intake and Output
08/20/24 08/21/24 08/22/24
06:59 06:59 06:59
Intake Total 3441.5 / 3670.3 3683.5 / 3683.5
Output Total 1180 / 1480 1380 / 1380
Balance 2261.5 / 2190.3 2303.5 / 2303.5
SaO2 99
Nasal Cannula flow liters per 2
minute
Physical Exam
General: Respiratory Distress (negative), Comfortable, Poor Appetite and Other (NAD)
HEENT: Normocephalic, Anicteric and Moist Mucous Membranes
Cardiovascular: S1-S2 and Peripheral Edema (negative)
Respiratory: Clear, Wheeze (negative), Crackles (negative), Rhonchi (negative), Non-Labored Respirations and Stridor (negative)
GI: Soft, Non Distended, Non Tender, Normal Bowel Sounds and Other (Drain in left lower quadrant with purulent fluid seen in bulb)
Neurology: Awake, Alert and Tremors (negative)
Skin: Warm, Dry, Good Color and Cyanosis (negative)
Labs/Micro/Reports
Lab Data
08/21/24 04:15
08/21/24 04:15
Microbiology
08/19/24 06:52 Blood/Venous Blood Culture - Preliminary
No Growth in 48 hours- Final report to follow
08/19/24 00:38 Blood/Venous Blood Culture - Preliminary
No Growth in 48 hours- Final report to follow
08/19/24 00:26 Blood/Venous Blood Culture - Preliminary
No Growth in 48 hours- Final report to follow
08/19/24 11:34 Blood/Venous Blood Culture - Preliminary
No Growth in 24 hours- Final report to follow
08/19/24 13:33 Abscess Wound Culture - Preliminary
Viridans Streptococcus Group
08/19/24 13:33 Abscess Gram Stain - Preliminary
08/19/24 01:52 Urine Urine Culture - Final
No Significant Growth
08/19/24 00:25 Nasal Swab Influenza Types A & B (IKER) - Final
Negative for Influenza A & B, NAAT
Negative results must be combined with clinical observations
and patient history.
Nucleic Acid Amplification test (NAAT)performed on the
[employer] platform.
--- NOTE | 2024-08-21 08:00 | PTCARENOTE ---
Received pt awake and alert.Speech is appropriate.+CORRALES.BL lower extremity weakness noted.c/o left flank drain site and low back discomfort.Repositioned for comfort.SR noted.IVF via sub q port noted.Decreased breath sounds bibasilar.O2 2l NC.POX
100%Appetite poor-fair.Pt states 'I'm going to graze so I don't get nauseous'. Pt requested and received Zofran.Incontinent yellow urine.Skin integrity as documented.Plan of care discussed with pt.
[2024-08-21] MEDS: SOLU-CORTEF 12.5 MG IV (08:10)
[2024-08-21] MEDS: D5/0.9% SODIUM CHLORIDE 1000 IV (08:10)
[2024-08-21] MEDS: NSS (PRESERVATIVE FREE) 10 ML IV (08:11)
[2024-08-21] MEDS: HEPARIN 5000 UNITS SC ×2 (08:11→16:03)
[2024-08-21] MEDS: NEURONTIN 300 MG PO ×2 (08:12→19:14)
[2024-08-21] MEDS: ZOFRAN 4 MG IV (08:12)
[2024-08-21] MEDS: PROTONIX IV 40 MG IV (08:12)
[2024-08-21] MEDS: FLORASTOR 250 MG PO ×2 (08:12→19:14)
--- NOTE | 2024-08-21 10:15 | HOSPNOTE ---
Spoke at length with daughter about hospice and the philosophy. At this time the daughter and patient would like to continue antibiotics and keep the drain in place and try to wean off pressors completely. The daughter is realistic and understands
that the patient has cancer and the termite technician prognosis is poor. We will continue to follow and answer any further questions. At this time hospice is not wanted but will be available for further discussions.
--- NOTE | 2024-08-21 10:17 | W.PN.ID1 ---
Date of Service
Date of Service: August 21, 2024
Today's Communication
- continue levaquin, vancomycin, zosyn; if discharge is planned then can transition to augmentin for a two week course
The process is not resolvable with antibiotics and drain alone and she is at high risk of relapse with progressively resistant isolates unless the source can be controlled with aggressive surgery on the retroperitoneum followed by further assessment
of of the liver. Drainage alone is likely insufficient in my opinion. Neither would I expect her to be a candidate for chemotherapy unless infection fully removed with surgery and she is recovered. I recommend hospice.
Assessment / Plan
Large Retroperitoneal Mass/abscess with necrosis
Emphysematous Pyelonephritis
Septic Shock - persists, somewhat improved
CKD
Metastatic endometrial cancer
- blood cultures x3 in progress
- abscess culture in progress
- urine culture in progress
- note probable fistulae between the retroperitoneal abscess and duodenum with emphysematous pyelonephritis and suspected necrotic tumor, suspected hepatic abscesses
- continue levaquin, vancomycin, zosyn; if discharge is planned then can transition to augmentin for a two week course
The process is not resolvable with antibiotics and drain alone and she is at high risk of relapse with progressively resistant isolates unless the source can be controlled with aggressive surgery on the retroperitoneum followed by further assessment
of of the liver. Drainage alone is likely insufficient in my opinion. Neither would I expect her to be a candidate for chemotherapy unless infection fully removed with surgery and she is recovered. I recommend hospice.
Chief Complaint
-: Other (retroperitoneal abscess, necrotic )
Subjective / Review of Systems
afebrile
bp stable off of pressors
VGS in the culture of the necrotizing infection
Vital Signs / Physical Exam
Vital Signs
Vital Signs
Temp Pulse Resp BP Pulse Ox
97.3 F 69 13 109/52 99
08/21/24 07:43 08/21/24 06:00 08/21/24 05:30 08/21/24 06:00 08/21/24 06:00
Physical Exam
Constitutional: Acutely Ill and Chronically Ill
Cardiovascular: Regular Rate and S1/S2; Negative Murmur or Rub
Pulmonary: Clear and Symmetric; Negative Wheezes or Rales
Gastrointestinal: Soft, Non Tender, Non Distended and Normal Bowel Sounds
Skin: Warm and Dry; Negative Rash or Jaundice
Objective Data
Lab Data
Lab Results
08/21/24 04:15
08/21/24 04:15
PT 17.4 Sec (11.4-14.6) H 08/20/24 03:44
INR 1.40 08/20/24 03:44
APTT > 200 Sec (23.4-35.0) H* 08/20/24 03:44
Estimated Creat Clear 34 ml/min 08/21/24 04:15
Lactic Acid 2.3 mmol/L (0.7-2.0) H 08/20/24 03:44
Total Bilirubin 0.3 mg/dl (0.2-1.3) 08/21/24 04:15
AST 41 U/L (14-36) H 08/21/24 04:15
ALT 17 U/L (0-35) 08/21/24 04:15
Alkaline Phosphatase 138 U/L (38-126) H 08/21/24 04:15
Most recent labs reviewed.
Micro Results:
08/19/24 13:33 Wound Culture - Preliminary
Abscess Viridans Streptococcus Group
Gram Stain - Preliminary
08/19/24 06:52 Blood Culture - Preliminary
Blood/Venous No Growth in 48 hours- Final report to follow
08/19/24 00:38 Blood Culture - Preliminary
Blood/Venous No Growth in 48 hours- Final report to follow
08/19/24 00:26 Blood Culture - Preliminary
Blood/Venous No Growth in 48 hours- Final report to follow
08/19/24 11:34 Blood Culture - Preliminary
Blood/Venous No Growth in 24 hours- Final report to follow
08/19/24 01:52 Urine Culture - Final
Urine No Significant Growth
08/19/24 00:25 Influenza Types A & B (IKER) - Final
Nasal Swab Negative for Influenza A & B, NAAT
Negative results must be combined with clinical observations
and patient history.
Nucleic Acid Amplification test (NAAT)performed on the
[employer] platform.
[2024-08-21] MEDS: LEVAQUIN 150 IV (10:21)
--- NOTE | 2024-08-21 11:56 | PHA.VAN.FU ---
Vancomycin Assessment / Plan
- Assessment
Renal Function: Stable (1.2)
WBC's are: Trending Down (33.1->22.4)
In the past 24 hrs, patient has been: Afebrile
Concomitant Antimicrobials: Levofloxacin, Piperacillin/Tazobactam
- Assessment - Therapeutic Drug Monitoring
Random Level: 13.4 ~27.5Hr after 1G dose
- Dosing Plan
Dosing by Level: Re-dose today
Dosing Comments: Vanco 1G x1
- Monitoring Plan
Random Level: 08/22/24 0600
- Follow Up
Pharmacy will continue to follow.
Vancomycin Follow UP
- -
Patient Age: 79
Patient Sex: Female
Vancomycin Day #: 2
Indication: Genito-Urinary Tract
Requesting Provider: DR. ELLIS
Height / Weight:
Height 5 ft 4 in
Actual Weight 68.7 kg
Pertinent Past Medical History: METASTATIC ENDOMETRIAL CANCER
- Vital Signs / Lab Results
Temp Pulse Resp BP Pulse Ox
97.4 F 69 13 109/52 99
08/21/24 11:17 08/21/24 06:00 08/21/24 05:30 08/21/24 06:00 08/21/24 06:00
Lab Results - Hematology
08/19/24 08/20/24 08/21/24
00:37 03:44 04:15
WBC 11.9 H 33.1 H 22.4 H
Band Neutrophils 24 H
Lab Results - Chemistry
08/19/24 08/20/24 08/21/24
00:37 03:44 04:15
BUN 19 H 17 17
Creatinine 1.4 H 1.2 H 1.2 H
Estimated Creat Clear 29 34 34
Albumin 2.1 L 2.3 L 1.9 L
08/19/24 08/19/24 08/19/24
00:37 04:24 06:52
Lactic Acid 5.8 H* 4.3 H* 3.7 H
08/19/24 08/19/24 08/19/24
10:02 11:45 12:45
Lactic Acid Cancelled 3.1 H Cancelled
08/19/24 08/19/24 08/19/24
14:02 16:12 20:02
Lactic Acid Cancelled 2.7 H 3.0 H
08/19/24 08/20/24
23:40 03:44
Lactic Acid 2.5 H 2.3 H
Microbiology Results
08/19/24 11:34 Blood Culture - Preliminary
Blood/Venous No Growth in 48 hours- Final report to follow
08/19/24 13:33 Wound Culture - Preliminary
Abscess Viridans Streptococcus Group
Gram Stain - Preliminary
08/19/24 06:52 Blood Culture - Preliminary
Blood/Venous No Growth in 48 hours- Final report to follow
08/19/24 00:38 Blood Culture - Preliminary
Blood/Venous No Growth in 48 hours- Final report to follow
08/19/24 00:26 Blood Culture - Preliminary
Blood/Venous No Growth in 48 hours- Final report to follow
08/19/24 01:52 Urine Culture - Final
Urine No Significant Growth
Therapeutic Drug Monitoring
Random Vancomycin 13.4 ug/ml 08/21/24 04:15
--- NOTE | 2024-08-21 12:00 | PTCARENOTE ---
Pt assessed.No change in assessment noted.Incontinent of moderate BM.
[2024-08-21] MEDS: VANCOCIN 200 IV (12:35)
--- NOTE | 2024-08-21 13:20 | W.PN.HOSP.TC ---
Addendum entered and electronically signed by Joyce Jacobson MD 08/21/24 14:22:
I saw and evaluated the patient. I reviewed the resident�s note and agree with findings and plan as documented in the resident�s note.
A/P:
# Septic shock 2/2 complicated UTI with pyelitis/pyelonephritis/pelvic abscess of left kidney
# Also possible infected metastatic endometrial cancer
s/p IR drainage of renal abscess (removed 60mls of pus)
Wound culture growing viridans strep,
Cont levaquin, vancomycin, zosyn per ID
Of note, weaned off levophed
Off stress dose steroids
Overall, clinically improving despite poor long-term prognosis in setting of metastatic endometrial cancer
# Metastatic endometrial cancer
First diagnosed 10 years ago and had chemotherapy/radiation therapy, did well until 5 years ago when a 'spot' was noted in her mid abdomen at which time she received radiation therapy/letrozole, approximately March 2024 'spot' was growing and
patient restarted chemotherapy in June 2024 and had 2 rounds. Third round of chemo was postponed due to multidrug-resistant infection and hospitalization at [place].
Patient follows with oncologist at [facility].
Appreciate oncology input
DVT Proph: heparin sq
Code status: DNR.
Extensive discussion with son at bedside, total time spent 60 minutes
Original Note:
Today's Communication/Plan
-
- Continue to follow-up consultants
-
Assessment / Plan
Assessment / Plan
Septic shock on pressors resolved:
- Today her blood pressure is 133/60, pulse is 86, temperature is 97.4, oxygen saturation 100% on room air
-Source of infection is a large left retroperitoneal abscess according to abdomen/pelvis CT
- Fluid is currently draining via the LORETTA tube, 20 mL today, culture yesterday yielded Streptococcus
- Continue on vancomycin, Levaquin, Zosyn
- Pressors have been discontinued
- Infectious disease following
Metastatic endometrial cancer:
- Patient currently sees Dr. Peralta her outpatient oncologist
- Infectious disease and oncology both recommend hospice care due to complexity of disease and poor prognosis
-With the son at the bedside goals of care were discussed as well as the difference between hospice and palliative care. They are still discussing what type of end-of-life care they would like.
- CT scan shows multiple hepatic lesions representing hepatic metastatic lesions
- Oncology is following
- PT OT recommends SNF level rehab prior to discharge to home
Acute kidney injury:
- Creatinine level is 1.2 trending down from 1.4 on admission
- Most likely secondary to sepsis
- Continue to trend BMP level
Leukocytosis:
- Most likely reactive to the septic shock patient had recently
- WBC count is 22.4
- Continue antibiotics
- Trend WBC count
Normocytic anemia:
- No fatigue, shortness of breath, palpitations, headache, tachycardia, cold extremities
- Hemoglobin is 7.3 and MCV is 88.5, representing normocytic anemia
- Most likely anemia of chronic disease
- Continue to trend hemoglobin count if it gets less than 7 then transfuse
Elevated transaminases:
- AST is 41, alkaline phosphatase 138 both of these are trending down from admission
- Continue to trend LFTs
DVT prophylaxis-heparin subcu
CODE STATUS DNR
Anticipated Discharge: 24 - 48 hours
Subjective/Interval History
-
Date of Service: August 21, 2024
79-year-old female with a history of metastatic endometrial cancer presents to the [facility] emergency department from [facility] on August 19 for evaluation of fatigue and hypotension, has features of septic shock.
Temperature 102.1, tachycardic 110 elevated white blood cell count. Her previous admission in [place] where urine culture grew multidrug-resistant E. coli, pt wason day 2-5 Bactrim and presented to the ED. 3 micro blood specimens were negative
she was then admitted to the ICU and placed on IV fluids, pressors, Levaquin, vancomycin, Zosyn and pressors have been discontinued as blood pressure is stabilized. CT scan showed large left retroperitoneal abscess. Hepatic metastatic lesions,
left adrenal mass, small bilateral pleural effusions. Successfully CT-guided drainage of 60 mL of grossly appearing fluid which 1 culture showed routine Streptococcus. Infectious disease was consulted advised to continue Levaquin vancomycin and
Zosyn, then on second visit recommended hospice discussed with son and daughter process not resolved antibiotics alone as she is at high risk of relapse until source can be controlled aggressive surgery. Oncology was consulted and stated that there
is concerns about overall prognosis of disease, she should be stable to return to Dr. Polo her outpatient oncologist. Currently on hospice. PT OT states that she needs significant need for SNF prior to discharge.
Objective Data
-
Labs:
Laboratory Results
08/21/24
04:15
WBC 22.4 H
Hgb 7.3 L
Hct 22.3 L
Plt Count 237
Sodium 135
Potassium 4.4
Chloride 106
Carbon Dioxide 22
BUN 17
Creatinine 1.2 H
Glucose 106 H
Calcium 7.8 L
Total Bilirubin 0.3
AST 41 H
ALT 17
Alkaline Phosphatase 138 H
Vital Signs:
Vital Signs
Temp Pulse Resp BP Pulse Ox
97.4 F 86 20 133/68 100
08/21/24 11:17 08/21/24 13:00 08/21/24 13:00 08/21/24 13:00 08/21/24 13:00
I&O
08/20/24 08/21/24 08/22/24
06:59 06:59 06:59
Intake Total 3441.5 / 3670.3 3683.5 / 3683.5 700 / 700
Output Total 1180 / 1480 1380 / 1380
Balance 2261.5 / 2190.3 2303.5 / 2303.5 700 / 700
Review of Systems
-
History Source: Patient
All other systems: Reviewed and negative
Physical Exam
-
General: Appears Chronically Ill
HEENT: Normocephalic, Atraumatic and Oxygen
Respiratory: Clear to Auscultation; Negative Wheezes or Rhonchi
Cardiac: Regular Rhythm and S1/S2; Negative Murmur
GI: Soft, Nontender, Nondistended and Normal Bowel Sounds
Musculoskeletal: No Clubbing, No Cyanosis and No Edema
Skin: Warm
Neuro: Awake
Psych: Calm
Data Reviewed
-
Labs: Labs Reviewed by me and Discussed with Physician
--- NOTE | 2024-08-21 15:27 | CM ---
Reviewed the chart notes. Patient and family not ready for hospice. CM continues to be available to patient/family and is monitoring medical plan for needs at discharge.
Plan: Discharge plans will depend on the patient's progress.
--- NOTE | 2024-08-21 16:22 | PTCARENOTE ---
Pt assessed.No change in assessment noted.
[2024-08-21] MEDS: DILAUDID 0.25 MG IV (22:02)
[2024-08-22] VITALS (36 sets, daily range): BP systolic 86–134; BP diastolic 42–94; PULSE 88; BMI 26.7
[2024-08-22] MEDS: HEPARIN 5000 UNITS SC ×4 (00:45→23:23)
[2024-08-22] MEDS: ZOSYN 50 IV ×4 (00:46→21:16)
[2024-08-22] MEDS: NSS 500 IV (02:32)
[2024-08-22] MEDS: DILAUDID 0.25 MG IV ×3 (02:44→22:00)
[2024-08-22 04:30] LABS: Hematocrit 21.6 % (37.0-47.0); Mean Corp Hgb Conc. 32.4 g/dL (33.0-37.0); Mean Corpuscular Volume 89.6 fL (81.0-99.0); Mean Platelet Volume 9.7 fL (7.4-10.4); Platelet Count 241 10^3/uL (130-400); Red Blood Cell Count 2.41 10^6/uL (4.20-5.40); Red Cell Dist. Width 16.9 % (11.5-14.5); White Blood Cell Count 15.6 10^3/uL (4.8-10.8)
[2024-08-22 04:59] LABS: ALT (SGPT) 18 U/L (0-35); AST (SGOT) 35 U/L (14-36); Albumin 1.7 g/dl (3.5-5.0); Alkaline Phosphatase 120 U/L (38-126); Blood Urea Nitrogen 19 mg/dl (7-17); Carbon Dioxide 22 mmol/L (22-30); Chloride 108 mmol/L (98-107); Estimated Creatinine Clearance 37 ml/min; Glucose 81 mg/dl (70-99); Magnesium 1.8 mg/dl (1.6-2.3); Phosphorus 2.4 mg/dl (2.5-4.5); Sodium 135 mmol/L (135-145); Total Bilirubin 0.3 mg/dl (0.2-1.3); Total Protein 4.2 g/dl (6.3-8.2); eGFR 51.75
[2024-08-22 06:41] LABS: % Basophils 0.3 % (0-2); % Eosinophils 0.1 % (0-6); % Immature Granulocytes 0.8 % (0-0.5); % Monocytes 3.1 % (1.7-9.3); % Neutrophils 89.7 % (42.2-75.2); Absolute Immature Granulocytes 0.1 10^3/uL (0-0.05); Absolute Lymphocytes 0.9 10^3/uL (1.2-3.4); Absolute Monocytes 0.5 10^3/uL (0.1-0.6); Nucleated Red Blood Cells % 0 %
[2024-08-22] MEDS: FLORASTOR 250 MG PO ×2 (07:40→21:16)
[2024-08-22] MEDS: NEURONTIN 300 MG PO ×2 (07:40→21:16)
--- NOTE | 2024-08-22 08:29 | PHA.VAN.FU ---
Addendum entered and electronically signed by Lashawn Bauman [facility] 08/22/24 11:13:
Correction: day 4 vancomycin
Original Note:
Vancomycin Assessment / Plan
- Assessment
Renal Function: Stable (1.1)
WBC's are: WNL (22.4->15.6)
In the past 24 hrs, patient has been: Afebrile
Concomitant Antimicrobials: Levofloxacin, Piperacillin/Tazobactam
- Assessment - Therapeutic Drug Monitoring
Random Level: 17.0 ~16hr after 1G dose given 08/21/24
- Dosing Plan
Dosing by Level: Hold off on dosing today
- Monitoring Plan
Random Level: 08/23/24 0600
- Follow Up
Pharmacy will continue to follow.
Vancomycin Follow UP
- -
Patient Age: 79
Patient Sex: Female
Vancomycin Day #: 3
Indication: Genito-Urinary Tract
Requesting Provider: DR. ELLIS
Height / Weight:
Height 5 ft 4 in
Actual Weight 70.4 kg
Pertinent Past Medical History: METASTATIC ENDOMETRIAL CANCER
- Vital Signs / Lab Results
Temp Pulse Resp BP Pulse Ox
97.5 F 70 9 95/43 99
08/22/24 07:40 08/22/24 06:00 08/22/24 06:00 08/22/24 06:00 08/22/24 08:00
Lab Results - Hematology
08/20/24 08/21/24 08/22/24
03:44 04:15 04:11
WBC 33.1 H 22.4 H 15.6 H
Lab Results - Chemistry
08/20/24 08/21/24 08/22/24
03:44 04:15 04:11
BUN 17 17 19 H
Creatinine 1.2 H 1.2 H 1.1 H
Estimated Creat Clear 34 34 37
Albumin 2.3 L 1.9 L 1.7 L
08/19/24 08/19/24 08/19/24
10:02 11:45 12:45
Lactic Acid Cancelled 3.1 H Cancelled
08/19/24 08/19/24 08/19/24
14:02 16:12 20:02
Lactic Acid Cancelled 2.7 H 3.0 H
08/19/24 08/20/24
23:40 03:44
Lactic Acid 2.5 H 2.3 H
Microbiology Results
08/19/24 06:52 Blood Culture - Preliminary
Blood/Venous No Growth in 72 hours- Final report to follow
08/19/24 00:26 Blood Culture - Preliminary
Blood/Venous No Growth in 72 hours- Final report to follow
08/19/24 00:38 Blood Culture - Preliminary
Blood/Venous No Growth in 72 hours- Final report to follow
08/19/24 11:34 Blood Culture - Preliminary
Blood/Venous No Growth in 48 hours- Final report to follow
08/19/24 13:33 Wound Culture - Preliminary
Abscess Viridans Streptococcus Group
Gram Stain - Preliminary
08/19/24 01:52 Urine Culture - Final
Urine No Significant Growth
Therapeutic Drug Monitoring
Random Vancomycin 17.0 ug/ml 08/22/24 04:11
[2024-08-22 08:34] LABS: Glycohemoglobin (HgbA1c) 5.7 % (4.0-5.6)
--- NOTE | 2024-08-22 09:17 | W.PN.ID1 ---
Date of Service
Date of Service: August 22, 2024
Today's Communication
- continue levaquin, vancomycin, zosyn; if discharge is planned then can transition to augmentin for a two week course
Assessment / Plan
Large Retroperitoneal Mass/abscess with necrosis
Emphysematous Pyelonephritis
CKD
Metastatic endometrial cancer
H/o colonization with MDRO
- blood cultures x3 in progress NGTD
- abscess culture in progress - VGS - preliminary
- urine culture - finalized negative
- note probable fistulae between the retroperitoneal abscess and duodenum with emphysematous pyelonephritis and suspected necrotic tumor, suspected hepatic abscesses
- continue levaquin, vancomycin, zosyn; if discharge is planned then can transition to augmentin for a two week course
The process is not resolvable with antibiotics and drain alone and she is at high risk of relapse with progressively resistant isolates unless the source can be controlled with aggressive surgery on the retroperitoneum followed by further assessment
of of the liver. Drainage alone is likely insufficient in my opinion and a temporizing measure only. Neither would I expect her to be a candidate for chemotherapy unless infection fully removed with surgery and she is recovered. I recommend
hospice which patient is currently refusing. Encouraged her to get a second opinion with her team at [place].
Chief Complaint
-: Other (retroperitoneal abscess, necrotic )
Subjective / Review of Systems
afebrile
intermittent hypotension - MAPS 50-60s
Vital Signs / Physical Exam
Vital Signs
Vital Signs
Temp Pulse Resp BP Pulse Ox
97.5 F 70 9 95/43 99
08/22/24 07:40 08/22/24 06:00 08/22/24 06:00 08/22/24 06:00 08/22/24 08:00
Physical Exam
Constitutional: No Acute Distress and Chronically Ill
Cardiovascular: Regular Rate and S1/S2
Pulmonary: Symmetric
Gastrointestinal: Non Distended
Skin: Dry; Negative Rash or Jaundice
Neurological: Awake
Objective Data
Lab Data
Lab Results
08/22/24 04:11
08/22/24 04:11
PT 17.4 Sec (11.4-14.6) H 08/20/24 03:44
INR 1.40 08/20/24 03:44
APTT > 200 Sec (23.4-35.0) H* 08/20/24 03:44
Estimated Creat Clear 37 ml/min 08/22/24 04:11
Lactic Acid 2.3 mmol/L (0.7-2.0) H 08/20/24 03:44
Total Bilirubin 0.3 mg/dl (0.2-1.3) 08/22/24 04:11
AST 35 U/L (14-36) 08/22/24 04:11
ALT 18 U/L (0-35) 08/22/24 04:11
Alkaline Phosphatase 120 U/L (38-126) 08/22/24 04:11
Most recent labs reviewed.
Micro Results:
08/19/24 06:52 Blood Culture - Preliminary
Blood/Venous No Growth in 72 hours- Final report to follow
08/19/24 00:26 Blood Culture - Preliminary
Blood/Venous No Growth in 72 hours- Final report to follow
08/19/24 00:38 Blood Culture - Preliminary
Blood/Venous No Growth in 72 hours- Final report to follow
08/19/24 11:34 Blood Culture - Preliminary
Blood/Venous No Growth in 48 hours- Final report to follow
08/19/24 13:33 Wound Culture - Preliminary
Abscess Viridans Streptococcus Group
Gram Stain - Preliminary
08/19/24 01:52 Urine Culture - Final
Urine No Significant Growth
08/19/24 00:25 Influenza Types A & B (IKER) - Final
Nasal Swab Negative for Influenza A & B, NAAT
Negative results must be combined with clinical observations
and patient history.
Nucleic Acid Amplification test (NAAT)performed on the
[employer] platform.
--- NOTE | 2024-08-22 09:35 | W.PN.ONC ---
Today's Communication / Plan
-
Patient tells me 'I know I don't have long to live, but every day matters to me, and I'm not ready for hospice'
Continue supportive care in hospital with antibiotics, blood transfusions, etc.
Eventual outpatient f/u with Dr. Peralta at [place]
Will sign off, please call with questions.
Impression
Impression
Metastatic endometrial cancer
Infection necrotic r/p mass, now with image-guided drain in place
Hx colon cancer
Sepsis
Plan
Plan
Patient tells me 'I know I don't have long to live, but every day matters to me, and I'm not ready for hospice'
Continue supportive care in hospital with antibiotics, blood transfusions, etc.
Eventual outpatient f/u with Dr. Peralta at [place]
Will sign off, please call [facility] questions.
Subjective/Objective
Subjective/Objective
appetite is fair, no new issues or complaints
Vital Signs:
Vital Signs
Temp Pulse Resp BP Pulse Ox
97.5 F 70 9 95/43 99
08/22/24 07:40 08/22/24 06:00 08/22/24 06:00 08/22/24 06:00 08/22/24 08:00
Lab Results:
Laboratory Data
WBC 15.6 10^3/uL (4.8-10.8) H 08/22/24 04:11
Hgb 7.0 g/dL (12.0-16.0) L 08/22/24 04:11
Plt Count 241 10^3/uL (130-400) 08/22/24 04:11
PT 17.4 Sec (11.4-14.6) H 08/20/24 03:44
INR 1.40 08/20/24 03:44
APTT > 200 Sec (23.4-35.0) H* 08/20/24 03:44
eGFR 51.75 08/22/24 04:11
--- NOTE | 2024-08-22 15:03 | PTCARENOTE ---
pt received this am- aox3, nsr on monitor, room air. pt tolerated 1 unit of prbc. two right subq ports accessed- flushed with good blood return. pt turned, repositioned and incontinence care provided frequently. son and daughter at bedside- both
updated. left flank perc drain with purluent drainage, flushed with sterile saline. all safety precautions in place, call queen within reach.
--- NOTE | 2024-08-22 15:21 | W.PN.HOSP.TC ---
Addendum entered and electronically signed by Joyce Jacobson MD 08/22/24 15:35:
I saw and evaluated the patient. I reviewed the resident�s note and agree with findings and plan as documented in the resident�s note.
A/P:
# Septic shock 2/2 complicated UTI with pyelitis/pyelonephritis/pelvic abscess of left kidney
# Also possible infected metastatic endometrial cancer
s/p IR drainage of renal abscess (removed 60 ml of pus)
Wound culture growing viridans strep,
Cont levaquin, vancomycin, zosyn per ID; to transition to Augmentin for two week course at the time of discharge
Of note, weaned off levophed and off stress dose steroids
Overall, clinically improving despite poor long-term prognosis in setting of metastatic endometrial cancer
# Metastatic endometrial cancer
First diagnosed 10 years ago and had chemotherapy/radiation therapy, did well until 5 years ago when a 'spot' was noted in her mid abdomen at which time she received radiation therapy/letrozole, approximately March 2024 'spot' was growing and
patient restarted chemotherapy in June 2024 and had 2 rounds. Third round of chemo was postponed due to multidrug-resistant infection and hospitalization at [place].
Patient follows with oncologist at [place].
Appreciate oncology input, signed off
# Acute kidney injury, improved
Creatinine 1.1 from 1.4 on admission
Continue to trend BMP level
# Normocytic anemia:
hemoglobin at 7 today, to transfuse 1 unit PRBC
DVT Proph: heparin sq
Code status: DNR.
Extensive discussion with son at bedside, total time spent 60 minutes
Original Note:
Today's Communication/Plan
-
- palliative consult
- monitor cbc
- monitor hemoglobin
Assessment / Plan
Assessment / Plan
Septic shock on pressors resolved:
- Today her blood pressure is 129/53, pulse is 79, temperature is 97.4, oxygen saturation 100% on room air
-Source of infection is a large left retroperitoneal abscess according to abdomen/pelvis CT
- Fluid is currently draining via the LORETTA tube, 20 mL today, culture yielded Streptococcus, will consult IR for whether or not to remove drain
- Continue on vancomycin, Levaquin, Zosyn and then 2 week Augmentin when discharged
- Infectious disease following
Metastatic endometrial cancer:
- Infectious disease and oncology both recommend hospice care due to complexity of disease and poor prognosis
-With the son at the bedside goals of care were discussed as well as the difference between hospice and palliative care. They are still discussing what type of end-of-life care they would like.
- CT scan shows multiple hepatic lesions representing hepatic metastatic lesions
- Oncology signed off, recommends f/u with outpatient onc doctor dr. Peralta
- PT OT recommends SNF level rehab prior to discharge to home
Acute kidney injury:
- Creatinine level is 1.1 trending down from 1.4 on admission
- Most likely secondary to sepsis
- Continue to trend BMP level
Leukocytosis:
- Most likely reactive to the septic shock patient had recently
- WBC count is 15.6 and trending down
- Continue antibiotics
- Trend WBC count
Normocytic anemia:
- No fatigue, shortness of breath, palpitations, headache, tachycardia, cold extremities
- hemoglobin count less than 7, we will transfuse
Elevated transaminases:
- resolved
DVT prophylaxis-heparin subcu
CODE STATUS DNR
Anticipated Discharge: 24 - 48 hours
Subjective/Interval History
-
Date of Service: August 22, 2024
No acute complaints.
Is considering palliative care and would like a more informed opinion.
Objective Data
-
Labs:
Laboratory Results
08/22/24
04:11
WBC 15.6 H
Hgb 7.0 L
Hct 21.6 L
Plt Count 241
Sodium 135
Potassium 4.0
Chloride 108 H
Carbon Dioxide 22
BUN 19 H
Creatinine 1.1 H
Glucose 81
Calcium 8.0 L
Total Bilirubin 0.3
AST 35
ALT 18
Alkaline Phosphatase 120
Vital Signs:
Vital Signs
Temp Pulse Resp BP Pulse Ox
98 F 79 16 129/53 96
08/22/24 13:39 08/22/24 13:39 08/22/24 13:39 08/22/24 13:39 08/22/24 13:39
I&O
08/21/24 08/22/24 08/23/24
06:59 06:59 06:59
Intake Total 3683.5 / 3683.5 2109 / 2109 310 / 310
Output Total 1380 / 1380 30 / 30
Balance 2303.5 / 2303.5 2079 / 2079 310 / 310
Review of Systems
-
History Source: Patient
All other systems: Reviewed and negative
Physical Exam
-
General: Appears Chronically Ill
HEENT: Normocephalic, Atraumatic and Oxygen
Respiratory: Clear to Auscultation; Negative Wheezes or Rhonchi
Cardiac: Regular Rhythm and S1/S2; Negative Murmur
GI: Soft, Nontender, Nondistended and Normal Bowel Sounds
Musculoskeletal: No Clubbing, No Cyanosis and No Edema
Skin: Warm
Neuro: Awake
Psych: Calm
Data Reviewed
-
Labs: Labs Reviewed by me and Discussed with Physician
--- NOTE | 2024-08-22 18:23 | PTCARENOTE ---
pt oob to chair for 1.5 hours x2 assist, pt able to stand and side step. incontinence and skin care provided. pt denies pain at this time.
[2024-08-23] VITALS (14 sets, daily range): BP systolic 100–132; BP diastolic 39–76; BMI 26.4
[2024-08-23] MEDS: ZOSYN 50 IV ×4 (01:07→19:30)
[2024-08-23 05:37] LABS: Hematocrit 26.9 % (37.0-47.0); Mean Corp Hgb Conc. 33.5 g/dL (33.0-37.0); Mean Corpuscular Volume 86.8 fL (81.0-99.0); Mean Platelet Volume 9.7 fL (7.4-10.4); Platelet Count 258 10^3/uL (130-400); Red Cell Dist. Width 17.5 % (11.5-14.5)
[2024-08-23 05:46] LABS: Vancomycin Random 12.2 ug/ml
[2024-08-23 05:55] LABS: Blood Urea Nitrogen 18 mg/dl (7-17); Carbon Dioxide 25 mmol/L (22-30); Chloride 110 mmol/L (98-107); Estimated Creatinine Clearance 41 ml/min; Glucose 74 mg/dl (70-99); Sodium 136 mmol/L (135-145); eGFR 58.02
[2024-08-23] MEDS: NEURONTIN 300 MG PO ×2 (07:53→19:30)
[2024-08-23] MEDS: HEPARIN 5000 UNITS SC ×2 (07:54→15:00)
[2024-08-23] MEDS: FLORASTOR 250 MG PO ×2 (07:54→19:30)
--- NOTE | 2024-08-23 08:56 | PHA.VAN.FU ---
Vancomycin Assessment / Plan
- Assessment
Renal Function: Stable (1.0)
WBC's are: WNL (9.0)
In the past 24 hrs, patient has been: Afebrile
Concomitant Antimicrobials: Levofloxacin, Piperacillin/Tazobactam
- Assessment - Therapeutic Drug Monitoring
Random Level: 12.2 ~25hrs after previous level of 17
Calculated ke: 0.0133
Calculated half life (H): 52.2
- Dosing Plan
Dosing by Level: Re-dose today
Dosing Comments: Vanco 1G x1
- Monitoring Plan
Random Level: 08/24/24 0600
- Follow Up
Pharmacy will continue to follow.
Vancomycin Follow UP
- -
Patient Age: 79
Patient Sex: Female
Vancomycin Day #: 4
Indication: Genito-Urinary Tract
Requesting Provider: DR. ELLIS
Height / Weight:
Height 5 ft 4 in
Actual Weight 69.7 kg
Pertinent Past Medical History: METASTATIC ENDOMETRIAL CANCER
- Vital Signs / Lab Results
Temp Pulse Resp BP Pulse Ox
97.8 F 74 13 116/51 96
08/23/24 07:47 08/23/24 06:00 08/23/24 06:00 08/23/24 06:00 08/22/24 22:12
Lab Results - Hematology
08/21/24 08/22/24 08/23/24
04:15 04:11 05:11
WBC 22.4 H 15.6 H 9.0
Lab Results - Chemistry
08/21/24 08/22/24 08/23/24
04:15 04:11 05:11
BUN 17 19 H 18 H
Creatinine 1.2 H 1.1 H 1.0
Estimated Creat Clear 34 37 41
Albumin 1.9 L 1.7 L
Microbiology Results
08/19/24 06:52 Blood Culture - Preliminary
Blood/Venous No Growth in 4 days- Final report to follow
08/19/24 00:26 Blood Culture - Preliminary
Blood/Venous No Growth in 4 days- Final report to follow
08/19/24 00:38 Blood Culture - Preliminary
Blood/Venous No Growth in 4 days- Final report to follow
08/19/24 11:34 Blood Culture - Preliminary
Blood/Venous No Growth in 72 hours- Final report to follow
08/19/24 13:33 Wound Culture - Final
Abscess Viridans Streptococcus Group
Gram Stain - Final
Therapeutic Drug Monitoring
Random Vancomycin 12.2 ug/ml 08/23/24 05:11
[2024-08-23] MEDS: LEVAQUIN 150 IV (09:49)
--- NOTE | 2024-08-23 10:17 | PTCARENOTE ---
Patient somnolent this morning, wishes to sleep more, was incontinent of stool x2. loose. Cleansed patient. reapplied sacral foam and mepilex around drain insertion site.
--- NOTE | 2024-08-23 10:59 | W.PN.HOSP.TC ---
Addendum entered and electronically signed by Joyce Jacobson MD 08/23/24 12:50:
I saw and evaluated the patient. I reviewed the resident�s note and agree with findings and plan as documented in the resident�s note.
A/P:
# Septic shock 2/2 complicated UTI with pyelitis/pyelonephritis/pelvic abscess of left kidney
# Possible infected metastatic endometrial cancer
s/p IR drain placement of renal abscess (removed 60 ml of pus)
Wound culture growing viridans strep,
Cont Levaquin, vancomycin, zosyn per ID; to transition to Augmentin for two week course at the time of discharge per ID
Of note, weaned off Levophed drip and off stress dose steroid
Overall, clinically stable despite poor long-term prognosis in setting of metastatic endometrial cancer
# Metastatic endometrial cancer
First diagnosed 10 years ago and had chemotherapy/radiation therapy, did well until 5 years ago when a 'spot' was noted in her mid abdomen at which time she received radiation therapy/letrozole, approximately March 2024 'spot' was growing and
patient restarted chemotherapy in June 2024 and had 2 rounds. Third round of chemo was postponed due to multidrug-resistant infection and hospitalization at [place].
Patient follows with oncologist at [place].
Appreciate oncology input, signed off
# Acute kidney injury, improved
Creatinine 1.4 to 1.0 today
Continue to trend BMP level
# Normocytic anemia
s/p 1 unit PRBC transfusion
hemoglobin 9.0 today
DVT Proph: heparin sq
Code status: DNR.
D/w ID
Original Note:
Today's Communication/Plan
-
- consult palliative care
- Discuss with IRAD about what to do with tube
Assessment / Plan
Assessment / Plan
Septic shock on pressors resolved:
- Today her blood pressure is 123/53, pulse is 74, temperature is 97.4, oxygen saturation 95% on room air in room
-Source of infection is a large left retroperitoneal abscess according to abdomen/pelvis CT
- Fluid is currently draining via the LORETTA tube, 20 mL today, culture yielded Streptococcus, will consult IR for whether or not to remove drain
- Continue on vancomycin, Levaquin, Zosyn and then 2 week Augmentin when discharged
- Infectious disease following
Metastatic endometrial cancer:
- Infectious disease and oncology both recommend hospice care due to complexity of disease and poor prognosis
-With the son at the bedside goals of care were discussed as well as the difference between hospice and palliative care. They are still discussing what type of end-of-life care they would like.
- CT scan shows multiple hepatic lesions representing hepatic metastatic lesions
- Oncology signed off, recommends f/u with outpatient onc doctor dr. Peralta
- PT OT recommends SNF level rehab prior to discharge to home
- Palliative care consulted
Acute kidney injury:
- Creatinine level is 1.0 trending down from 1.4 on admission
- Most likely secondary to sepsis
- Continue to trend BMP level
Leukocytosis:
- Most likely reactive to the septic shock patient had recently
- WBC count is 15.6 and trending down
- Continue antibiotics
- Trend WBC count
Normocytic anemia:
- No fatigue, shortness of breath, palpitations, headache, tachycardia, cold extremities
- hemoglobin count less than 7, we will transfuse
Elevated transaminases:
- resolved
DVT prophylaxis-heparin subcu
CODE STATUS DNR
Anticipated Discharge: 24 - 48 hours
Subjective/Interval History
-
Date of Service: August 23, 2024
No acute complaints.
Objective Data
-
Labs:
Laboratory Results
08/23/24
05:11
WBC 9.0
Hgb 9.0 L D
Hct 26.9 L
Plt Count 258
Sodium 136
Potassium 4.0
Chloride 110 H
Carbon Dioxide 25
BUN 18 H
Creatinine 1.0
Glucose 74
Calcium 8.0 L
Vital Signs:
Vital Signs
Temp Pulse Resp BP Pulse Ox
97.8 F 74 11 123/53 64
08/23/24 07:47 08/23/24 10:00 08/23/24 10:00 08/23/24 10:00 08/23/24 08:00
I&O
08/22/24 08/23/24 08/24/24
06:59 06:59 06:59
Intake Total 2109 / 2109 410 / 410 50 / 50
Output Total
Balance 2079 380 / 380 50 / 50
Review of Systems
-
History Source: Patient
All other systems: Reviewed and negative
Physical Exam
-
General: Appears Chronically Ill
HEENT: Normocephalic, Atraumatic and Oxygen
Respiratory: Clear to Auscultation; Negative Wheezes or Rhonchi
Cardiac: Regular Rhythm and S1/S2; Negative Murmur
GI: Soft, Nontender, Nondistended and Normal Bowel Sounds
Musculoskeletal: No Clubbing, No Cyanosis and No Edema
Skin: Warm
Neuro: Awake
Psych: Calm
Data Reviewed
-
Labs: Labs Reviewed by me and Discussed with Physician
--- NOTE | 2024-08-23 11:14 | W.PN.UPDATE ---
Addendum entered and electronically signed by Dona Mark MD 08/23/24 11:24:
reviewed plans with primary team Dr Jacobson
ID service will no longer actively follow this patient please recall for further questions.
Original Note:
Update Note
Progress Note Update
Plans finalized
Risks of relapse are clear to the patient.
continue levaquin, vancomycin, zosyn; if discharge is planned then can transition to augmentin for a two week course
--- NOTE | 2024-08-23 12:01 | W.CON.PAL ---
Consultation
-
Date/Time Consultation Requested: 08/22
Date/Time Consultation Performed: 08/23
Performing Provider: Callie Rosa
Reason for Consult: Goals of Care Discussion
Primary Diagnosis: metastatic endometrial cancer
Reason for Admission
Illness Course/HPI
79 year old F with PMH of metastatic endometrial cancer. Dx 10 years ago, with recurrent 5 years ago and most recent chemo 07/04 but held due to infection. Recent admit at [facility] where she follows oncology. Admitted here with septic shock
2/ UTI/pyelo/pelvic abscess with possible infected endometrial cancer. Has been on IV ABX and had drain placed. Per ID, temporizing measures only and not curative with high risk for relapsed infection. Not a chemo candidate any longer due to this.
Hospice has been discussed and declined.
Seen at bedside with no family present. Patient reports feeling very tired today but yesterday felt good, changes day to day. States the plan is to get to a nursing facility for rehab but she 'knows she doesnt have much time left here.' Discussed
concerns over this plan due to the fact she is high risk for complications and readmission to the hospital, and if we know her time is short, is this how she wants to spend it? Main concern is that she doesnt want her daughter to be her caregiver
and burden her. Discussed if she didnt want to go home, hospice at a facility is an option with room and board fees, without rehab. Asked me to discuss with her daughter.
Spoke with daughter Jayla. Jayla concerned as she feels as though taking her off IV ABX is just speeding up her . Discussed whether IV or PO, infection will not be cured and high risk for complications and ending up back in the hospital.
Discussed at this point, rehab may not be very beneficial. Also explained rec for transition to PO augmentin for 2 weeks at discharge which can be given on hospice if thats what they decide and she was happy to hear this. She will discuss with her
mother about next steps, but seem to be leaning towards hospice - home vs facility placement.
Objective Data
-
Objective Data:
Vital Signs
Temp Pulse Resp BP Pulse Ox
97.8 F 74 11 123/53 98
08/23/24 07:47 08/23/24 10:00 08/23/24 10:00 08/23/24 10:00 08/23/24 08:00
Laboratory Results
08/23/24 05:11
08/23/24 05:11
PT 17.4 Sec (11.4-14.6) H 08/20/24 03:44
INR 1.40 08/20/24 03:44
APTT > 200 Sec (23.4-35.0) H* 08/20/24 03:44
Hemoglobin A1c 5.7 % (4.0-5.6) H 08/22/24 04:11
Total Protein 4.2 g/dl (6.3-8.2) L 08/22/24 04:11
Albumin 1.7 g/dl (3.5-5.0) L 08/22/24 04:11
Urine Color Yellow 08/19/24 01:52
Urine Clarity Clear (Clear) 08/19/24 01:52
Urine pH 6.0 (5.0-9.0) 08/19/24 01:52
Ur Specific [place] 1.020 (<1.030) 08/19/24 01:52
Urine Ketones Negative (Negative) 08/19/24 01:52
Urine Bilirubin Negative (Negative) 08/19/24 01:52
Palliative Performance Scale
Palliative Performance Scale:
PPS Level Ambulation Activity & Evidence of Disease Self Care Intake Conscious Level
100% Full Normal Activity & Work; Full Intake Full
No Evidence of Disease
90% Full Normal Activity & Work; Full Normal Full
Some Evidence of Disease
80% Full Normal Activity with Effort Full Normal or Full
Some Evidence of Disease Reduced
70% Reduced Unable Normal Job/Work Full Normal or Full
Significant Disease Reduced
60% Reduced Unable Hobby/Housework Occasional Normal or Full or Confusion
Significant Disease Assistance Reduced
50% Mainly Sit/Lie Unable to do Any Work Considerable Normal or Full or Confusion
Extensive Disease Assistance Req'd Reduced
40% Mainly in Bed Unable to do Most Activity Mainly Assistance Normal or Full or Drowsy;
Extensive Disease Reduced +/- Confusion
30% Totally Bed Unable to do Any Activity Total Care Normal or Full or Drowsy;
Bound Extensive Disease Reduced +/- Confusion
20% Totally Bed Bound Unable to do Any Activity Total Care Minimal to Full or Drowsy;
Extensive Disease Sips +/- Confusion
10% Totally Bed Bound Unable to do Any Activity Total Care Mouth Care Drowsy or Coma;
Extensive Disease Only +/- Confusion
0%
PPS Score Level:
Assessment / Plan
-
Assessment/Plan:
79 year old F with recurrent endometrial cancer with mets
- leaning towards hospice - unclear if home vs facility at this point
- DNR
Care Reviewed
Data Reviewed
Medical Tests: I reviewed
Reviewed with: Patient, Family and Physician
[2024-08-23] MEDS: VANCOCIN 200 IV (12:14)
--- NOTE | 2024-08-23 13:10 | HOSPNOTE ---
Case management reached out patient would like to discuss hospice in the am 08/24 after speaking with family this evening. If the decision is hospice it would most likely be home hospice. More information to follow.
--- NOTE | 2024-08-23 13:22 | CM ---
CM following re: discharge planning.
Reviewed pt's chart, met with pt.
Pt stated 'I think I do not much time left here and I am deciding hospice care'. Emotional support offered and provided. CM had a long conversation/discussion regarding philosophy of live, support and comfort and pt stated she does not want to put
any pressure on her wonderful children. Home hospice vs penitentiary/[facility] hospice care options information provided to the pt. Pt stated her daughter has young children and her son has young child and she does not want her grandchildren be around
her dying. Pt stated if home hospice with caregiver services she will prefer to go to her house.
Pt stated her children are coming later today and she will let them to decide. Again, pt stated she will let her children know about her decision regarding hospice and she will let them decide: home hospice or SNF/NH/[facility] hospice. Pt stated she just
want comfort. Emotional support provided during entire meeting.
CM spoke to home health clinical liaison and she is aware of pt's decision and she will meet with the pt per her request after meeting with her children.
D/C plan: hospice with hospice.
CM will follow to assist pt with discharge plan updates as hospitalization progresses
[2024-08-23] MEDS: ZOFRAN 4 MG IV (19:58)
[2024-08-23] MEDS: DILAUDID 0.25 MG IV (21:07)
[2024-08-24] VITALS (12 sets, daily range): BP systolic 97–129; BP diastolic 43–70; BMI 26.7
[2024-08-24] MEDS: ZOSYN 50 IV ×4 (01:04→20:06)
[2024-08-24] MEDS: HEPARIN 5000 UNITS SC ×4 (01:04→23:33)
[2024-08-24] MEDS: DILAUDID 0.25 MG IV (04:18)
[2024-08-24 04:45] LABS: Blood Urea Nitrogen 15 mg/dl (7-17); Calcium 7.9 mg/dl (8.4-10.2); Carbon Dioxide 23 mmol/L (22-30); Chloride 106 mmol/L (98-107); Estimated Creatinine Clearance 45 ml/min; Glucose 82 mg/dl (70-99); Potassium 3.8 mmol/L (3.5-5.1); Sodium 135 mmol/L (135-145); eGFR > 60.00
[2024-08-24 04:49] LABS: Vancomycin Random 16.2 ug/ml
[2024-08-24 04:50] LABS: Hematocrit 29.5 % (37.0-47.0); Hemoglobin 9.9 g/dL (12.0-16.0); Mean Corp Hgb Conc. 33.6 g/dL (33.0-37.0); Mean Corpuscular Hgb 28.9 pg (27.0-31.0); Mean Platelet Volume 9.4 fL (7.4-10.4); Platelet Count 273 10^3/uL (130-400); Red Blood Cell Count 3.43 10^6/uL (4.20-5.40); Red Cell Dist. Width 17.2 % (11.5-14.5); White Blood Cell Count 9.4 10^3/uL (4.8-10.8)
--- NOTE | 2024-08-24 07:31 | W.PN.HOSP.TC ---
Addendum entered and electronically signed by Joyce Jacobson MD 08/24/24 13:03:
I saw and evaluated the patient. I reviewed the resident�s note and agree with findings and plan as documented in the resident�s note.
A/P:
# Septic shock 2/2 complicated UTI with pyelitis/pyelonephritis/pelvic abscess of left kidney
# Possible infected metastatic endometrial cancer
s/p IR drain placement of renal abscess (removed 60 ml of pus)
Wound culture growing viridans strep,
Cont Levaquin, vancomycin, zosyn per ID; to transition to Augmentin for two week course at the time of discharge per ID
Of note, weaned off Levophed drip and off stress dose steroid
Overall, clinically stable despite poor long-term prognosis in setting of metastatic endometrial cancer
# Metastatic endometrial cancer
First diagnosed 10 years ago and had chemotherapy/radiation therapy, did well until 5 years ago when a 'spot' was noted in her mid abdomen at which time she received radiation therapy/letrozole, approximately March 2024 'spot' was growing and
patient restarted chemotherapy in June 2024 and had 2 rounds. Third round of chemo was postponed due to multidrug-resistant infection and hospitalization at [facility].
Patient follows with oncologist at [facility].
Appreciate oncology input, signed off
# Acute kidney injury, resolved
Creatinine 1.4 to 0.9 today
# Normocytic anemia
s/p 1 unit PRBC transfusion
hemoglobin 9.9 today
DVT Proph: heparin sq
Code status: DNR
Dispo: Goals of care/hospice discussion ongoing
Original Note:
Today's Communication/Plan
-
- follow up case management
Assessment / Plan
Assessment / Plan
Patient is leaning towards hospice and would like to discuss it with her family when they come in today. Deciding on whether she wants it at home vs a rehab facility.
Septic shock on pressors resolved
Large left retroperitoneal abscess:
- resolved
- her blood pressure on admission her blood pressure is 123/53, pulse is 74, temperature is 97.4, oxygen saturation 95% on room air in room
-Source of infection is a large left retroperitoneal abscess according to abdomen/pelvis CT
- Fluid is currently draining via the LORETTA tube, 20 mL today, culture yielded Streptococcus, will consult IR for whether or not to remove drain
- Continue on vancomycin, Levaquin, Zosyn and then 2 week Augmentin when discharged
- Infectious disease following
Metastatic endometrial cancer:
- Infectious disease and oncology both recommend hospice care due to complexity of disease and poor prognosis
-With the son at the bedside goals of care were discussed as well as the difference between hospice and palliative care. They are still discussing what type of end-of-life care they would like.
- CT scan shows multiple hepatic lesions representing hepatic metastatic lesions
- Oncology signed off, recommends f/u with outpatient onc doctor dr. Peralta
- PT OT recommends SNF level rehab prior to discharge to home
- Palliative care suggests hospice care
Acute kidney injury:
- resolved
- Creatinine level is 1.0 trending down from 1.4 on admission
- Continue to trend BMP level
Leukocytosis:
- Resolved
- WBC count is 9.4 and normalized
- Continue antibiotics
- Trend WBC count
Normocytic anemia:
- No fatigue, shortness of breath, palpitations, headache, tachycardia, cold extremities
- hemoglobin count less than 7, we will transfuse
Elevated transaminases:
- resolved
DVT prophylaxis-heparin subcu
CODE STATUS DNR
Anticipated Discharge: Within 24 hours
Subjective/Interval History
-
Date of Service: August 24, 2024
No acute medical complaints.
Patient would like to discuss hospice care with her family.
Objective Data
-
Labs:
Laboratory Results
08/24/24
04:15
WBC 9.4
Hgb 9.9 L
Hct 29.5 L
Plt Count 273
Sodium 135
Potassium 3.8
Chloride 106
Carbon Dioxide 23
BUN 15
Creatinine 0.9
Glucose 82
Calcium 7.9 L
Vital Signs:
Vital Signs
Temp Pulse Resp BP Pulse Ox
97.9 F 81 8 100/56 96
08/24/24 03:51 08/24/24 06:00 08/24/24 06:00 08/24/24 06:00 08/23/24 19:41
I&O
08/23/24 08/24/24 08/25/24
06:59 06:59 06:59
Intake Total 410 / 410 340 / 340
Output Total 30 / 30 30 / 30
Balance 380 / 380 310 / 310
Review of Systems
-
History Source: Patient
All other systems: Reviewed and negative
Physical Exam
-
General: Appears Chronically Ill
HEENT: Normocephalic, Atraumatic and Oxygen
Respiratory: Clear to Auscultation; Negative Wheezes or Rhonchi
Cardiac: Regular Rhythm and S1/S2; Negative Murmur
GI: Soft, Nontender, Nondistended and Normal Bowel Sounds
Musculoskeletal: No Clubbing, No Cyanosis and No Edema
Skin: Warm
Neuro: Awake
Psych: Calm
Data Reviewed
-
Labs: Labs Reviewed by me and Discussed with Physician
[2024-08-24] MEDS: NEURONTIN 300 MG PO ×2 (07:43→20:06)
[2024-08-24] MEDS: FLORASTOR 250 MG PO ×2 (07:43→20:06)
[2024-08-24] MEDS: DILAUDID 0.5 MG IV ×2 (07:46→20:05)
--- NOTE | 2024-08-24 08:44 | PHA.VAN.FU ---
Vancomycin Assessment / Plan
- Assessment
Renal Function: Stable
WBC's are: WNL
In the past 24 hrs, patient has been: Afebrile
Concomitant Antimicrobials: levofloxacin, piperacillin/tazobactam
- Assessment - Therapeutic Drug Monitoring
Random Level: 16.2 - drawn ~16H after previous dose of 1g
- Dosing Plan
Dosing by Level: Hold off on dosing today (based on half-life & ke from yesterday patient expected to maintain level for > 30H)
Clearance may be improving but expect it still remains somewhat limited
- Monitoring Plan
Random Level: 08/25 0600
- Follow Up
Pharmacy will continue to follow.
Vancomycin Follow UP
- -
Patient Age: 79
Patient Sex: Female
Vancomycin Day #: 5
Indication: Genito-Urinary Tract
Requesting Provider: Dr. Cramer
Pertinent Antimicrobial Allergies:
NKDA
Height / Weight:
Height 5 ft 4 in
Actual Weight 70.5 kg
Pertinent Past Medical History: Metastatic endometrial cancer
- Vital Signs / Lab Results
Temp Pulse Resp BP Pulse Ox
97.5 F 88 14 117/70 96
08/24/24 08:16 08/24/24 08:30 08/24/24 08:30 08/24/24 08:00 08/23/24 19:41
Lab Results - Hematology
08/22/24 08/23/24 08/24/24
04:11 05:11 04:15
WBC 15.6 H 9.0 9.4
Lab Results - Chemistry
08/22/24 08/23/24 08/24/24
04:11 05:11 04:15
BUN 19 H 18 H 15
Creatinine 1.1 H 1.0 0.9
Estimated Creat Clear 37 41 45
Albumin 1.7 L
Microbiology Results
08/19/24 06:52 Blood Culture - Final
Blood/Venous No Growth - Final Report
08/19/24 00:26 Blood Culture - Final
Blood/Venous No Growth - Final Report
08/19/24 00:38 Blood Culture - Final
Blood/Venous No Growth - Final Report
08/19/24 11:34 Blood Culture - Preliminary
Blood/Venous No Growth in 4 days- Final report to follow
08/19/24 13:33 Wound Culture - Final
Abscess Viridans Streptococcus Group
Gram Stain - Final
Therapeutic Drug Monitoring
Random Vancomycin 16.2 ug/ml 08/24/24 04:15
--- NOTE | 2024-08-24 08:52 | PTCARENOTE ---
No change from prior assessment. emotional support provided as decisions on hospice to be made. continuing to turn and reposition patient as needed.
--- NOTE | 2024-08-24 09:44 | HOSPNOTE ---
Spoke with patient and patient asked me to call daughter. The daughter stated she is in agreement with hospice since it is her moms wishes. The daughter and her brother are looking into additional support with a home care agency for care givers and
then stated that they have several calls in to other hospice agencies. The daughter stated that she will call me back this afternoon with a decision of which agency to use for hospice services.
--- NOTE | 2024-08-24 13:10 | CM ---
Addendum entered by Tom Bajwa 08/24/24 13:54:
IMM reviewed, placed on chart, pt has a copy.
Original Note:
CM following re: discharge planning.
Reviewed pt's chart, met with pt and pt's son Neel.
Pt's son stated that after family meeting yesterday a following decision has been made: pt will return back home with [facility] live-in caregiver services and pt's son requested [facility] hospice. Also, pt's son stated that hospice services ands
live-in caregiver services will be ready Wednesday Morning. CM pointed out that we can work together with [facility] hospice and [facility] / delivery analyst services to start services for pt at home tomorrow.
CM spoke to [facility] caregiver services [facility] Patricia [phone] and she confirmed that they can start caregiver services as soon as hospice care services are in place. CM spoke to MILAD Caraballo from [facility] and she stated she will evaluate
the pt tomorrow morning and they can start live-in caregiver services tomorrow.
CM spoke to [facility] sales representative livestock Gloria [phone] and she confirmed they will be able to start services tomorrow when all assessments are completed. Requested pt's clinical faxed to [facility] [phone].
D/C plan: home with [facility] hospice, [facility] live-in caregiver services and family support.
CM will follow to assist pt with a safe discharge plan.
--- NOTE | 2024-08-24 20:00 | PTCARENOTE ---
on assessment pt AAOx3, SR on the monitor, RA, REG diet, incontinent of B/B, L LORETTA intact, call queen in reach
[2024-08-25] VITALS (9 sets, daily range): BP systolic 87–141; BP diastolic 43–60
[2024-08-25] MEDS: ZOSYN 50 IV ×4 (03:29→19:41)
[2024-08-25 06:06] LABS: Vancomycin Random 11.2 ug/ml
--- NOTE | 2024-08-25 07:55 | W.PN.HOSP.TC ---
Addendum entered and electronically signed by Joyce Jacobson MD 08/25/24 13:19:
I saw and evaluated the patient. I reviewed the resident�s note and agree with findings and plan as documented in the resident�s note.
A/P:
# Septic shock 2/2 complicated UTI with pyelitis/pyelonephritis/pelvic abscess of left kidney
# Possible infected metastatic endometrial cancer
s/p IR drain placement of renal abscess
Wound culture growing viridans strep,
Cont Levaquin, vancomycin, zosyn per ID; to transition to Augmentin for two week course at the time of discharge per ID
Of note, weaned off Levophed drip and off stress dose steroid
Poor long-term prognosis in setting of metastatic endometrial cancer, goals of care discussion ongoing, plan is for home hospice 08/26/2024
# Metastatic endometrial cancer
First diagnosed 10 years ago and had chemotherapy/radiation therapy, did well until 5 years ago when a 'spot' was noted in her mid abdomen at which time she received radiation therapy/letrozole, approximately March 2024 'spot' was growing and
patient restarted chemotherapy in June 2024 and had 2 rounds. Third round of chemo was postponed due to multidrug-resistant infection and hospitalization at [facility].
Patient follows with oncologist at [facility].
Appreciate oncology input, signed off
# Acute kidney injury, resolved
Creatinine 1.4 to 0.9
# Normocytic anemia
s/p 1 unit PRBC transfusion
DVT Proph: heparin sq
Code status: DNR
Dispo: Poor long-term prognosis in setting of metastatic endometrial cancer, goals of care discussion ongoing, plan is for home hospice 08/26/2024
Original Note:
Today's Communication/Plan
-
- being discharged to home hospice care today
Assessment / Plan
Assessment / Plan
Patient has decided on home hospice care with [facility]. Being discharged today after assessment by home hospice care team.
Septic shock on pressors resolved
Large left retroperitoneal abscess:
- resolved
- her blood pressure on admission her blood pressure is 123/53, pulse is 74, temperature is 97.4, oxygen saturation 95% on room air in room
-Source of infection is a large left retroperitoneal abscess according to abdomen/pelvis CT
- Fluid is currently draining via the LORETTA tube, 20 mL today, culture yielded Streptococcus, will consult IR for whether or not to remove drain
- Continue on vancomycin, Levaquin, Zosyn and then 2 week Augmentin when discharged
- Infectious disease following
Metastatic endometrial cancer:
- Infectious disease and oncology both recommend hospice care due to complexity of disease and poor prognosis
- CT scan shows multiple hepatic lesions representing hepatic metastatic lesions
- Oncology signed off, recommends f/u with outpatient onc doctor dr. Peralta
- Patient has decided on home hospice care.
Acute kidney injury:
- resolved
Leukocytosis:
- Resolved
Normocytic anemia:
- No fatigue, shortness of breath, palpitations, headache, tachycardia, cold extremities
- hemoglobin count less than 7, we will transfuse
Elevated transaminases:
- resolved
DVT prophylaxis-heparin subcu
CODE STATUS DNR
Anticipated Discharge: Today
Subjective/Interval History
-
Date of Service: August 25, 2024
No acute medical complaints.
Patient has decided on Home Hospice care with family.
Objective Data
-
Vital Signs:
Vital Signs
Temp Pulse Resp BP Pulse Ox
98.4 F 71 9 94/46 98
08/25/24 03:06 08/25/24 06:00 08/25/24 06:00 08/25/24 06:00 08/24/24 08:00
I&O
08/24/24 08/25/24 08/26/24
06:59 06:59 06:59
Intake Total 340 / 340 0 / 0
Output Total / 30
Balance 310 / 310 -25 / -25
Review of Systems
-
History Source: Patient
All other systems: Reviewed and negative
Physical Exam
-
General: Appears Chronically Ill
HEENT: Normocephalic, Atraumatic and Oxygen
Respiratory: Clear to Auscultation; Negative Wheezes or Rhonchi
Cardiac: Regular Rhythm and S1/S2; Negative Murmur
GI: Soft, Nontender, Nondistended and Normal Bowel Sounds
Musculoskeletal: No Clubbing, No Cyanosis and No Edema
Skin: Warm
Neuro: Awake
Psych: Calm
Data Reviewed
-
Labs: Labs Reviewed by me and Discussed with Physician
--- NOTE | 2024-08-25 08:05 | PTCARENOTE ---
Received pt with her daughter at the bedside. She is a very pleasant woman. Right SC port with KVO for IV ABX. Right AC #20g protective catheter flushed and patent. Weak pedal pulses. +2 anasarca. Lungs CTA & dim in the bases. +BSX4. Incontinent for
moderate amount of loose/liquid stool & urine. Severe MASD of her perineum. Very tender when cleansing. Calazime cream then Desenex powder applied to perineum and groin folds. Left flank drain CDI. Pt with C/O pain when she rolls on that side.
Protective foam intact to protect skin from the drain port. Knee-hi scd's intact. Clarifying details of her discharge for the pt and her daughter.
[2024-08-25] MEDS: NEURONTIN 300 MG PO ×2 (08:58→19:41)
[2024-08-25] MEDS: HEPARIN 5000 UNITS SC ×2 (08:58→21:34)
[2024-08-25] MEDS: FLORASTOR 250 MG PO ×2 (08:58→19:41)
[2024-08-25] MEDS: ZOFRAN 4 MG IV (11:17)
--- NOTE | 2024-08-25 11:28 | PTCARENOTE ---
Dr. Jacobson notified of the severe excoriation from multiple loose & liquid BM's. Pt wanted to know if the diarrhea is from her ABX VS cancer. She is contemplating stopping the antibiotics if it from the antibiotics.
--- NOTE | 2024-08-25 11:33 | PTCARENOTE ---
Resident Humaira Machuca TT'd about her multiple episodes of large loose/liquid BM's with severe excoriation of her skin and a sacral stage II. Calazim cream and desenex powder applied.
--- NOTE | 2024-08-25 11:39 | CM ---
Addendum entered by Tom Bajwa 08/25/24 11:54:
[facility] confirmed bead picker time tomorrow 08/26/24 at 10:00 a.m.
Both pt and her daughter are aware.
[facility] hospice metals sales representative Monica is aware and she confirmed that pt will be signed in on hospice care tomorrow when pt arrives home.
[facility] metals sales representative Rashmi is aware of discharge time.
Original Note:
CM following re: discharge planning.
Reviewed pt's chart, met with pt and pt's daughter Suni at bedside.
According to MD pt is medically stable to be discharged. Both pt and her daughter are aware, expressed their agreement. IMM reviewed, placed on chart, pt has a copy.
Pt's address is: [address] [place] [id number]. Per daughter there is no steps.
CM met with [facility] caregiver services [facility] Alondra [phone] and she confirmed that they can start caregiver services as soon as hospice care services are in place.
CM spoke to [facility] hospice metals sales representative Monica [phone] and she confirmed they will be able to start services tomorrow 08/26/24 and she asked for pt's discharge time 10:00 a.m. tomorrow
to arrange ambulance transport BLS for tomorrow 08/26/24 for 10:00 a.m bead picker time. [facility] completed and left with .
Out of hospital DNR signed by and left with .
Please fax discharge instructions to [facility] hospice [phone].
D/C plan: home tomorrow with [facility] hospice, [facility]/11 live-in caregiver services and family support.
--- NOTE | 2024-08-25 12:18 | PHA.VAN.FU ---
Vancomycin Assessment / Plan
- Assessment
Renal Function: Stable (0.9)
WBC's are: WNL (9.4)
In the past 24 hrs, patient has been: Afebrile
Concomitant Antimicrobials: Levofloxacin, Piperacillin/Tazobactam
- Assessment - Therapeutic Drug Monitoring
Random Level: 11.2 ~25H after previous level of 16.2
Calculated ke: 0.0148
Calculated half life (H): 46.9
- Dosing Plan
Dosing by Level: Re-dose today
Dosing Comments: Vanco 1Gx1
- Monitoring Plan
Random Level: 08/26/24 0600
- Follow Up
Pharmacy will continue to follow.
Vancomycin Follow UP
- -
Patient Age: 79
Patient Sex: Female
Vancomycin Day #: 6
Indication: Genito-Urinary Tract
Requesting Provider: Dr. Cramer
Pertinent Antimicrobial Allergies:
NKDA
Height / Weight:
Height 5 ft 4 in
Actual Weight 70.5 kg
Pertinent Past Medical History: Metastatic endometrial cancer
- Vital Signs / Lab Results
Temp Pulse Resp BP Pulse Ox
98.1 F 71 9 94/46 98
08/25/24 11:05 08/25/24 06:00 08/25/24 06:00 08/25/24 06:00 08/24/24 08:00
Lab Results - Hematology
08/23/24 08/24/24
05:11 04:15
WBC 9.0 9.4
Lab Results - Chemistry
08/23/24 08/24/24
05:11 04:15
BUN 18 H 15
Creatinine 1.0 0.9
Estimated Creat Clear 41 45
Microbiology Results
08/19/24 11:34 Blood Culture - Final
Blood/Venous No Growth - Final Report
08/19/24 06:52 Blood Culture - Final
Blood/Venous No Growth - Final Report
08/19/24 00:26 Blood Culture - Final
Blood/Venous No Growth - Final Report
08/19/24 00:38 Blood Culture - Final
Blood/Venous No Growth - Final Report
Therapeutic Drug Monitoring
Random Vancomycin 11.2 ug/ml 08/25/24 05:15
[2024-08-25] MEDS: LEVAQUIN 750 MG PO (14:00)
--- NOTE | 2024-08-25 14:13 | PN.CDI ---
CDI
- -
CDI:
Physician Documentation Request
Admit Date: 08/19/24 04:49
Dear Doctor,
Please review the following and provide your response in the progress notes.
Clinical Indicators:
- RN assessments indicate Stage 2 sacrum pressure injury, POA
Physician documentation of the type and location of wounds is required for compliant documentation. Based on the above clinical findings and your assessment, please provide the following in your progress note:
1. Location of the ulcer/wound, including laterality.
2. Type (etiology) of ulcer/wound:
- Diabetic ulcer
- Arterial (ischemic) ulcer
- Traumatic wound
- Venous stasis ulcer
- Pressure (decubitus) ulcer
- Non-healing surgical wound
- Other
Use of terms such as suspected, likely, concern for, or probable (associated with a specific diagnosis that is being evaluated, monitored, or treated as if it exists) are acceptable and can be coded in the inpatient setting, when documented at the
time of discharge.
Thank you,
Keron Ramos RN
CDI Specialist
Please use your independent medical judgment in providing your response.
*Source: National Pressure Ulcer Advisory Panel (NPUAP)
[2024-08-25] MEDS: VANCOCIN 200 IV (14:15)
--- NOTE | 2024-08-25 14:45 | PTCARENOTE ---
Daughter Jayla notified that her mother prefers to keep her drain in att this time and may choose to stop her ABX at any time. Supportive care given.
[2024-08-25] MEDS: DILAUDID 0.5 MG IV ×2 (15:22→21:34)
[2024-08-25] MEDS: HEPARIN SC (15:26)
--- NOTE | 2024-08-25 18:12 | W.DCSUMMARY ---
Documented by User: Sven Moran MD, Resident 08/25/24 18:43
Discharge Summary
Discharge Data
Date of Admission: 08/19/24
Date of Discharge: 08/25/24
-
Pending Results: No
Hospital Course
Discharging Physician : Dr. Joyce Jacobson and Dr. Sven Moran
Disposition : Home Hospice
Principal Discharge diagnosis : Septic shock, acute kidney injury,
Chronic Discharge diagnosis : Metastatic endometrial cancer, elevated transaminases, normocytic anemia
Hospital Course : 79-year-old female with a history of metastatic endometrial cancer presents to the [place] emergency department from [facility] on August 19 for evaluation of fatigue and hypotension, has features of
septic shock.
Problem #1: Septic shock---on admission temperature was 102.1, pulse was 110, elevated white blood cell count. Blood specimens were negative. Placed on IV fluids, pressors which were later weaned off after blood pressure stabilized, and vancomycin
with Zosyn. Source of infection is large left retroperitoneal abscess seen on CT scan. CT-guided drainage of 60 mL grossly appearing fluid with 1 culture showing Streptococcus, LORETTA drain was placed which showed minimal fluid towards discharge.
Infectious disease consulted and advised to continue Levaquin, vancomycin, Zosyn. Drain will be kept in as patient does not want to take it out, further evaluation of drain will be by hospice home care. All antibiotics discontinued as she elected
for hospice home care.
Problem #2: Metastatic endometrial cancer---diagnosed 10 years ago. Had 2 rounds of chemo. Patient follows with oncologist at [place]. Oncology was consulted and recommended hospice care due to complexity of disease and poor prognosis, better to
follow-up with outpatient oncologist. CT scan of the abdomen shows multiple hepatic lesions representing metastatic lesions. Patient has elected hospice with home care so all forms of treatment for the chemo will be stopped. Was on gabapentin for
pain control, continue on discharge.
Problem #3: Acute kidney injury---resolved. Creatinine went from 1.4 on admission to 0.9 on discharge. suspect hypoperfusion of kidneys due to septic shock. IV fluids were administered and underlying infection treated with antibiotics.
Problem #4: Normocytic anemia--- No fatigue, shortness of breath, palpitations, headache, tachycardia, cold extremities. Hemoglobin on admission was 9.5. She received 1 unit of packed red blood cells on 08/22/2024 after hemoglobin was 7. On
discharge hemoglobin was 9.9. MCV in normal range so suspect normocytic anemia secondary to metastatic endometrial cancer.
Problem #5: Elevated transaminases---AST was 41. Resolved on discharge.
Important imaging findings :
Chest x-ray :
IMPRESSION:
Left basilar opacification which could represent subsegmental atelectasis and/for pneumonia.
Abdominal/pelvic CT 08/19/24:
IMPRESSION:
1. Large left retroperitoneal collection of fluid and air, which is contiguous with the left kidney, left ureter, and duodenum, as detailed above. Findings likely represent large retroperitoneal abscess and/or emphysematous pyelonephritis.
Associated malignancy and/or necrotic tumor may also be present.
2. Fistulization to the fourth portion of the duodenum may also be present.
3. Multiple hepatic lesions as detailed above, most likely representing hepatic metastatic lesions, however given large retroperitoneal abscess, these may also represent hepatic abscesses.
4. The left kidney has minimal cortical function. There is minimal enhancement and no significant excretion of contrast.
5. Left adrenal mass.
6. Small bilateral pleural effusions. Mild bibasilar subsegmental atelectasis.
Procedure findings :
Percutaneous drainage 08/19/24:
IMPRESSION: Successful CT guided drainage catheter placement into a pelvic abscess, yielding 60 mL of grossly purulent fluid.
Discharge Plan
-
Patient Disposition: Home with Home Care
Discharge Diagnosis/Procedures: Septic shock due to complicated UTI with pyelitis/pyelonephritis/pelvic abscess of left kidney;
drain placement for renal abscess;
Metastatic endometrial cancer,
Resolved Acute kidney injury;
Normocytic anemia
Condition: Fair
Diet: Regular
Additional Diets: for pleasure
Activity: As tolerated
Driving Restrictions: No driving
Bathing Restrictions: None
Other Services: Hospice
Referrals:
Larry Toney MD [Family Provider] - in less than 1 week
Additional Discharge Medication Instructions: Since patient opted for hospice care at home, we have discontinued her medications she was receiving at hospital except pain control medications for symptomatic relief. Please defer any future treatment
related questions to her hospice medical providers.
Prescriptions:
New
acetaminophen 325 mg Tablet
650 mg PO Q6HPRN PRN (Reason: mild pain/ fever>100.5F) Qty: 30 0RF
loperamide 2 mg Capsule
2 mg PO Q6HPRN PRN (Reason: diarrhea) Qty: 20 0RF
ondansetron HCl 8 mg tablet
8 mg PO DAILY PRN (Reason: nausea and vomiting) 5 Days Qty: 30 0RF
prochlorperazine maleate [Compazine] 5 mg tablet
5 mg PO BID PRN (Reason: nausea and vomiting) Qty: 20 0RF
amoxicillin-pot clavulanate 875-125 mg tablet
1 tab PO Q12H 14 Days Qty: 28 0RF
Continued
gabapentin 300 mg Capsule
300 mg PO BID
Discontinued
acetaminophen 325 mg Tablet
650 mg PO Q6H PRN (Reason: fever)
ondansetron HCl [Zofran] 4 mg Tablet
8 mg PO Q8H PRN (Reason: nausea/vomiting)
prochlorperazine maleate 10 mg Tablet
10 mg PO Q6H PRN (Reason: nausea/vomiting)
sulfamethoxazole-trimethoprim [Bactrim DS] 800-160 mg Tablet
1 tab PO Q12H
Rx Instructions:
for 4 days 08/18-08/22
acetaminophen 500 mg Tablet
1,000 mg PO Q8H
Rx Instructions:
for 10 days starting 08/18
lidocaine-prilocaine 2.5-2.5 % Cream
1 applic TOPICAL DAILY
magnesium hydroxide [Milk of Magnesia] 400 mg/5 mL Suspension
15 ml PO HS PRN (Reason: constipation)
bisacodyl [Dulcolax (bisacodyl)] 10 mg Suppository
10 mg UT DAILY PRN (Reason: constipation)
Fleet Enema 19-7 gram/118 mL Enema
118 ml UT ONCE PRN (Reason: constipation)
ibuprofen 600 mg Tablet
600 mg PO Q6H PRN (Reason: pain)
Rx Instructions:
give with food
Saccharomyces boulardii 250 mg Capsule
250 mg PO BID
zinc oxide 13 % Cream
1 applic TOPICAL Q12H
Discharge Orders:
Discharge Patient (As Directed); Ordered 08/25/24
Ordered By: Sven Moran
Discharge Date and Time
Discharge Date/Time: 08/26/24 10:18
Print Language: JAPANESE

Documented by User: Joyce Jacobson MD 08/27/24 13:12
Discharge Summary
Discharge Data
Date of Admission: 08/19/24
Date of Discharge: 08/26/24
Hospital Course
Discharging Physician : Dr. Joyce Jacobson and Dr. Sven Moran
Disposition : Home Hospice
Principal Discharge diagnosis : Septic shock, resolved acute kidney injury
Chronic Discharge diagnosis : Metastatic endometrial cancer, normocytic anemia
Hospital Course : 79-year-old female with a history of metastatic endometrial cancer presented to the [place] emergency department from [facility] due to septic shock.
Problem #1: Septic shock due to large left retroperitoneal abscess. Pressors were initially initiated but later discontinued with improved blood pressure.
She underwent IR placement of drain for renal abscess. The culture grew Streptococcus.
She was covered with vancomycin, Zosyn, and Levaquin while in the hospital, and was discharged with Augmentin for 2 weeks per ID recommendation.
Extensive goals of care was discussed with the patient, and she was discharged home with home hospice.
She can continue the drain following discharge with home hospice.
Problem #2: Metastatic endometrial cancer with poor clinical functional status. She was discharged home with home hospice.
Problem #3: Acute kidney injury, resolved. Creatinine went from 1.4 on admission to 0.9 on discharge.
Important imaging findings :
Chest x-ray :
IMPRESSION:
Left basilar opacification which could represent subsegmental atelectasis and/for pneumonia.
Abdominal/pelvic CT 08/19/24:
IMPRESSION:
1. Large left retroperitoneal collection of fluid and air, which is contiguous with the left kidney, left ureter, and duodenum, as detailed above. Findings likely represent large retroperitoneal abscess and/or emphysematous pyelonephritis.
Associated malignancy and/or necrotic tumor may also be present.
2. Fistulization to the fourth portion of the duodenum may also be present.
3. Multiple hepatic lesions as detailed above, most likely representing hepatic metastatic lesions, however given large retroperitoneal abscess, these may also represent hepatic abscesses.
4. The left kidney has minimal cortical function. There is minimal enhancement and no significant excretion of contrast.
5. Left adrenal mass.
6. Small bilateral pleural effusions. Mild bibasilar subsegmental atelectasis.
Procedure findings :
Percutaneous drainage 08/19/24:
--- NOTE | 2024-08-25 18:53 | W.PN.UPDATE ---
Update Note
Progress Note Update
Pressure (decubitus) ulcer stage 2:
- Wound care, mobility, position changes, diet.
[2024-08-25] MEDS: TYLENOL 650 MG PO (21:35)
[2024-08-25] MEDS: LACTAID PO (22:49)
[2024-08-26] VITALS: BP 92/44
[2024-08-26] MEDS: ZOSYN 50 IV ×2 (01:33→08:24)
[2024-08-26] MEDS: DILAUDID 0.5 MG IV ×2 (01:34→09:38)
[2024-08-26 04:00] VITALS: BP 115/49
--- NOTE | 2024-08-26 07:56 | W.PN.HOSP.TC ---
Addendum entered and electronically signed by Joyce Jacobson MD 08/27/24 13:12:
total DC time 40 min
Original Note:
Today's Communication/Plan
-
home hospice today
Assessment / Plan
Assessment / Plan
A/P:
# Septic shock 2/2 complicated UTI with pyelitis/pyelonephritis/pelvic abscess of left kidney
# Possible infected metastatic endometrial cancer
s/p IR drain placement of renal abscess
Wound culture growing viridans strep,
Cont Levaquin, vancomycin, zosyn per ID; to transition to Augmentin for two week course at the time of discharge per ID
Of note, weaned off Levophed drip and off stress dose steroid
Poor long-term prognosis in setting of metastatic endometrial cancer, initiated goals of care discussion, plan is for home hospice 08/26/2024
# Metastatic endometrial cancer
First diagnosed 10 years ago and had chemotherapy/radiation therapy, did well until 5 years ago when a 'spot' was noted in her mid abdomen at which time she received radiation therapy/letrozole, approximately March 2024 'spot' was growing and
patient restarted chemotherapy in June 2024 and had 2 rounds. Third round of chemo was postponed due to multidrug-resistant infection and hospitalization at [place].
Patient follows with oncologist at [place].
Appreciate oncology input, signed off
# Acute kidney injury, resolved
Creatinine 1.4 to 0.9
# Normocytic anemia
s/p 1 unit PRBC transfusion
DVT Proph: heparin sq
Code status: DNR
Dispo: plan is for home hospice 08/26/2024
Anticipated Discharge: Today
Subjective/Interval History
-
Date of Service: August 26, 2024
Objective Data
-
Vital Signs:
Vital Signs
Temp Pulse Resp BP Pulse Ox
36.7 C 67 15 115/49 96
08/26/24 03:37 08/26/24 06:30 08/26/24 06:30 08/26/24 04:00 08/25/24 20:00
I&O
08/25/24 08/26/24 08/27/24
06:59 06:59 06:59
Intake Total 0 / 0 980 / 980 100 / 100
Output Total 270 / 270 300 / 300
Balance -25 710 / 710 -200 / -200
Review of Systems
-
All other systems: Reviewed and negative
Physical Exam
-
General: Appears Chronically Ill
HEENT: Normocephalic and Atraumatic
Respiratory: Clear to Auscultation and Non Labored Respirations; Negative Accessory Resp Muscle Use
Cardiac: Regular Rhythm and S1/S2
GI: Soft, Nontender and Nondistended
Genito-urinary: Other ( pelvic abscess drain in place)
Musculoskeletal: No Clubbing, No Cyanosis and No Edema
Skin: Warm
Neuro: Awake
Psych: Calm and Intact Judgement/Insight
[2024-08-26] MEDS: FLORASTOR 250 MG PO (08:23)
[2024-08-26] MEDS: NEURONTIN 300 MG PO (08:23)
[2024-08-26] MEDS: LACTAID 3 CAPSULE PO (08:23)
[2024-08-26] MEDS: IMODIUM 2 MG PO (08:23)
[2024-08-26] MEDS: HEPARIN SC (08:24)
--- NOTE | 2024-08-26 10:09 | PTCARENOTE ---
10:00 patient discharge home on hospice care. Transportation provided by ambulance service via stretcher Daughter packed all personal belongings herself. Discharge instructions provided to daughter. All scripts were send to [facility] in
[place]; Dr. Jacobson will re-send scrips to [facility] per patient's request;
RT chest port Di-axis by IV team before discharge; dilaudid 0.5 mg IV administered prior to discharge;
== END 2024-08-26 10:18 | disposition hospice, home (50) | DRG 871 ==
LOC: ICU 04:49
PROVIDERS: Internal Medicine; Internal Medicine Critical Care Medicine; Nurse Practitioner Family; Physician Assistant; Radiology Vascular & Interventional Radiology; ADMITTING PHYSICIAN Internal Medicine; ATTENDING PHYSICIAN Internal Medicine; CONSULT PHYSICIAN Internal Medicine; CONSULT PHYSICIAN Specialist; CONSULT PHYSICIAN Student in an Organized Health Care Education/Training Program; EMERGENCY PHYSICIAN Emergency Medicine; FAMILY PHYSICIAN Internal Medicine; OTHER PHYSICIAN Internal Medicine Hematology & Oncology; OTHER PHYSICIAN Nurse Practitioner Gerontology
PROC: 0W9J30Z Drainage of Pelvic Cavity with Drainage Device, Percutaneous Approach (ICD-10-PCS; 2024-08-19)
PROC: 30243N1 Transfusion of Nonautologous Red Blood Cells into Central Vein, Percutaneous Approach (ICD-10-PCS; 2024-08-22)
DX: A41.9 Sepsis, unspecified organism (principal); K68.19 Other retroperitoneal abscess; R65.21 Severe sepsis with septic shock; N17.9 Acute kidney failure, unspecified; J98.11 Atelectasis; N13.6 Pyonephrosis; J90 Pleural effusion, not elsewhere classified; E87.1 Hypo-osmolality and hyponatremia; E87.20 Acidosis, unspecified; C54.1 Malignant neoplasm of endometrium; D64.9 Anemia, unspecified; Z51.5 Encounter for palliative care; Z66 Do not resuscitate; B95.4 Other streptococcus as the cause of diseases classified elsewhere; Z11.52 Encounter for screening for COVID-19; Z92.21 Personal history of antineoplastic chemotherapy; K59.00 Constipation, unspecified; Z80.0 Family history of malignant neoplasm of digestive organs; E27.9 Disorder of adrenal gland, unspecified; Z79.899 Other long term (current) drug therapy; Z85.038 Personal history of other malignant neoplasm of large intestine; L89.152 Pressure ulcer of sacral region, stage 2
CPT/HCPCS: 49406; 71045; 74177; 80048; 80053; 80202; 81003; 81015; 82533; 82962; 83036; 83605; 83735; 84100; 85018; 85025; 85027; 85610; 85730; 86850; 86900; 86901; 86920; 87040; 87070; 87086; 87205; 87502; 87811; 92526; 92610; 93005; 96365; 96366; 96367; 96375; 96376; 97163; 97167; 97530; 97535; 99152; 99153; 99291; 99292; J2997; P9016; P9045; Q9967